=== PATIENT | male | born 1970 | race African-American/Black ===

== ENCOUNTER 2020-02-15 09:53 | Outpatient (REF) | payer MEDICARE, MEDICAID, SELFPAY ==
[2020-02-15 10:56] LABS: MANUAL DIFF FLAG NO
[2020-02-15 11:00] LABS: Basophils Percent Auto 0.5 % (0-2); Hematocrit 43.4 % (42-52); Hemoglobin 14.2 g/dl (14.0-18.0); Imm Gran Abs Auto 0.01 X10*3/uL (0.00-0.03); Imm Gran Pct Auto 0.2 % (0.0-0.4); Lymphocytes Absolute Auto 1.8 X10*3/uL (1.2-4.9); Lymphocytes Percent Auto 43.8 % (20-40); Mean Corpuscular HGB Conc 32.7 g/dl (31.0-36.0); Mean Corpuscular Hemoglobin 28.7 pg (27.0-33.0); Mean Corpuscular Volume 87.7 fL (80-98); Mean Platelet Volume 9.9 fL (9.4-12.4); Monocytes Absolute Auto 0.3 X10*3/uL (0.1-1.2); Monocytes Percent Auto 8.1 % (2-11); Neutrophils Percent Auto 46.4 % (45-73); Platelet Count 273 X10*3/uL (160-400); Red Blood Count 4.95 X10*6/uL (4.60-5.80); Red Cell Distribution Width 12.7 % (11.0-16.0); White Blood Count 4.2 X10*3/uL (4.8-10.8)
[2020-02-15 11:21] LABS: Estimated Average Glucose 137 mg/dL; Hemoglobin A1c % 6.4 %
[2020-02-15 11:57] LABS: Alanine Aminotransferase 18 U/L (0-40); Albumin Level 4.4 g/dL (3.5-5.0); Alkaline Phosphatase 59 U/L (39-117); Anion Gap 12 (12-20); Aspartate Amino Transferase 18 U/L (5-37); Bilirubin Total 0.5 mg/dL (0.0-1.0); Blood Urea Nitrogen 19 mg/dL (9-16); Calcium 9.6 mg/dL (8.4-10.2); Carbon Dioxide 30 mmol/L (22-29); Chloride 100 mmol/L (96-108); Cholesterol 243 mg/dL; Estimated Glomerular Filt Rate > 60; Glucose Random 125 mg/dL (60-115); HDL Cholesterol 50 mg/dL; LDL Cholesterol Calculated 175 mg/dl; Potassium 3.8 mmol/l (3.3-5.1); Sodium 138 mmol/L (135-145); Triglycerides 90 mg/dL
[2020-02-15 12:20] LABS: Prostate Specific Antigen Scr 3.05 ng/mL (<0.05-4.0); Thyroid Stimulating Hormone 0.67 mIU/mL (0.32-4.0)
== END 2020-02-15 09:54 | disposition home or self-care (01) ==
LOC: HO.LAB 09:53
PROVIDERS: Visit Provider Internal Medicine
DX: L30.9 Dermatitis, unspecified (principal); E66.3 Overweight; I10 Essential (primary) hypertension; E78.00 Pure hypercholesterolemia, unspecified; R73.01 Impaired fasting glucose
CPT/HCPCS: 36415; 80053; 80061; 83036; 84153; 84443; 85025

== ENCOUNTER → 2020-02-22 13:04 | Outpatient (BNVA) | payer MEDICARE, MEDICAID, SELFPAY | PROVIDERS: PCP Internal Medicine; Referring Provider Internal Medicine; Visit Provider Nurse Practitioner Family | DX: Z01.818 Encounter for other preprocedural examination (principal) | CPT/HCPCS: 99212 ==

== ENCOUNTER 2020-03-15 07:21 | Outpatient (REF) | payer MEDICARE, MEDICAID, SELFPAY | END 2020-03-15 07:22 | disposition home or self-care (01) | LOC: HO.LAB 07:21 | PROVIDERS: Visit Provider Internal Medicine | DX: Z20.828 Contact with and (suspected) exposure to other viral communicable diseases (principal) | CPT/HCPCS: C9803; U0003 ==

== ENCOUNTER 2020-04-22 06:47 | Day surgery (SDC) | payer MEDICARE, MEDICAID, SELFPAY ==
[2020-04-14 10:35] VITALS: BMI 29.2
--- NOTE | 2020-04-21 09:57 | HO.ANESPROP2 ---
Documented by User: Camryn Chong 04/21/20 09:59 HPI - Anesthesia Eval Consult details Narrative: 50yo M for [facility] Past Medical History Medical History alcohol syndrome Hypercholesterolemia Hypertension Impaired fasting blood sugar Mental and behavioral problem Overweight (BMI 25.0-29.9) Family History Family History Father No problems noted. Mother No problems noted. Brother Past heart attack Surgical History Surgical History History of oral surgery Social History Social History Household Members: Other Housing: Assisted Living Facility Alcohol intake: never Smoking Status: Never smoker Advance Directives: No Advance Directives Information Provided: No Advance Directives on File: No Meds Allergies Allergy/AdvReac Type Severity Reaction Status Date / Time No Known Allergies Allergy Verified 02/22/20 13:04 Home Medications Medication Instructions Recorded Confirmed Type cholecalciferol (vitamin D3) 25 25 mcg PO DAILY 02/14/20 04/14/20 History mcg (1,000 unit) capsule hydrochlorothiazide 25 mg tablet 25 mg PO DAILY 02/14/20 02/14/20 History hydroxyzine HCl 25 mg tablet 25 mg PO ONCE tab 02/14/20 04/14/20 History loperamide 2 mg capsule 2 mg PO Q4H PRN 02/14/20 History lisinopril [Prinivil] 10 mg PO DAILY 04/14/20 04/14/20 History Exam Exam Date and Time: April 21, 2020 0957 Height,Weight and Vital Signs: Height 5 ft 2 in Weight 72.575 kg Pertinent Lab Results Pertinent Lab Results: Laboratory Tests 02/15/20 02/15/20 10:25 10:25 WBC 4.2 L Hgb 14.2 Hct 43.4 Plt Count 273 Sodium 138 Potassium 3.8 Chloride 100 Carbon Dioxide 30 H BUN 19 H Creatinine 1.02 Assessment and Plan Assessment Anesthesia Assessment: Chart Reviewed Documented by User: Nadja Hays 04/22/20 07:20 [facility] Past Medical History Medical History alcohol syndrome Hypercholesterolemia Hypertension Impaired fasting blood sugar Mental and behavioral problem Overweight (BMI 25.0-29.9) Family History Family History Father No problems noted. Mother No problems noted. Brother Past heart attack Surgical History Surgical History History of oral surgery Social History Social History Household Members: Other Housing: Assisted Living Facility Alcohol intake: never Smoking Status: Never smoker Advance Directives: No Advance Directives Information Provided: No Advance Directives on File: No Meds Allergies Allergy/AdvReac Type Severity Reaction Status Date / Time No Known Allergies Allergy Verified 02/22/20 13:04 Home Medications Medication Instructions Recorded Confirmed Type cholecalciferol (vitamin D3) 25 25 mcg PO DAILY 02/14/20 04/14/20 History mcg (1,000 unit) capsule hydrochlorothiazide 25 mg tablet 25 mg PO DAILY 02/14/20 02/14/20 History hydroxyzine HCl 25 mg tablet 25 mg PO ONCE tab 02/14/20 04/14/20 History loperamide 2 mg capsule 2 mg PO Q4H PRN 02/14/20 History lisinopril [Prinivil] 10 mg PO DAILY 04/14/20 04/14/20 History Exam Airway Mallampati Class: II TM Dist: >3cm Neck ROM: Full Loose/Missing/Broken Teeth: Yes (24;25) Heart: RRR Lungs: Cta
[2020-04-22 07:15] VITALS: BP 134/78; PULSE 62; RESP 18; TEMP 36.4; O2SAT 97
[2020-04-22] MEDS: Lactated Ringers 1,000 ML 100 ML IVCONT (07:21)
--- NOTE | 2020-04-22 07:26 | P.HPSUR_ITS ---
Pre-Procedural Eval Section A The patient is an INPATIENT: No The History & Physical has been completed within 30 days and I have reviewed it.: No Section B Chief Complaint: screening Details of Present Illness: 50-year-old male here today for pre colonoscopy screening. [facility]. This is a tele visit speaking with patient as well as one of the staff members there. Patient denies any abdominal discomfort, pain, bloating, nausea, vomiting, constipation, diarrhea, melena. Patient reports to be feeling well. Takes all his medications as prescribed. He denies any CP, PND, SOB with or without exertion. Was seen last by his PCP Dr. Gastelum on February 13. Referral was requested to be seen by us patient is due for his 1st colonoscopy screening. He had his labs done on Feb 15 2020. Patient denies any familiar history of colon cancer or polyps. Denies any infectious diseases like hep A or B, tuberculosis. He is not on any anticoagulation. Denies any allergies, has no problems with sedation the past. Relevant Family History (Specify if Yes): No Relevant Social History: None Present Medications: see Short Stay Collaborative assessment Medical History: Significant History ( alcohol syndrome Hypercholesterolemia Hypertension Impaired fasting blood sugar Mental and behavioral problem Overweight (BMI 25.0-29.9)) History of Previous Operations: Relevant previous surgery/procedure and date(s) (History of oral surgery) Allergies: Allergies Allergy/AdvReac Type Severity Reaction Status Date / Time No Known Allergies Allergy Verified 02/22/20 13:04 Review of Systems Sugical H&P ROS: Negative: Constitution, Cardiovascular, Respiratory and Gastrointestinal and Yes, Specify: Neurological ( alcohol syndrome) Exam Surgical H&P Exam: Normal: Heart, Normal: Lungs, Normal: Extremities and Normal: Abdomen Plan Diagnosis/Plan: Unchanged I have reviewed the history and physical and performed a pertinent physical examination on my patient. No changes have occurred unless specified.
--- NOTE | 2020-04-22 07:26 | P.BOP_ITS ---
Brief Operative Note Date of Service: 04/22/20 Pre-op diagnosis: Colon cancer screening Post-op diagnosis: other (Diverticulosis, hemorrhoids) Procedure: COLONOSCOPY TILL CECUM Consent: Indications for the procedure and potential complications of bleeding, perforation, reaction to medications and missed diagnosis were discussed with the patient's guardian and informed verbal consent was obtained over the telephone. Instrument: Olympus PCF H 190 L variable stiffness pediatric colonoscope Monitoring: Vital signs and clinical assessment, intermittent blood pressure monitoring, continuous EKG monitoring, Pulse oximetry and Carbon Dioxide monitoring were done throughout the procedure. Colon withdrawl time was 16 minutes. Procedure: The patient was placed in the left lateral decubitis position and pre-procedure medications were administered. After a digital rectal examination of the ano-rectum, the video colonoscope was inserted into the rectum and advanced through the colon to the cecum. The colonoscope was slowly withdrawn in a retrograde panoramic fashion and the colon mucosa was carefully examined including a retroflexed view of the rectum. Findings and interventions are described below. Procedure Difficulty: Without difficulty Findings: Terminal Ileum: Not evaluated Cecum: Normal Ascending Colon: Moderate diverticulosis Transverse Colon: Moderate diverticulosis Descending Colon: Moderate diverticulosis Sigmoid Colon: Moderate diverticulosis Rectum: Normal Ano-rectum: Moderate internal hemorrhoids Colon preparation: Good after copious irrigation Impression and Post Procedure Diagnosis: Colonoscopy Findings: No polyps were detected Moderate diverticulosis seen in the entire colon Moderate hemorrhoids on retroflexed exam. Plan: Await pathology results Patient has an appointment on 05/05/20 in the GI Clinic with Iman Laboy FNP- BC . Repeat Colonoscopy in 10 years. Above findings were reviewed with the patient and diverticulosis handout was given in the discharge area Surgeon: Jovanni Kent MD Anesthesia: MAC (Dr Saez ) Estimated blood loss (mL): 0 Pathology: none sent Condition: stable Disposition: PACU
[2020-04-22 08:26] VITALS: BP 92/43; PULSE 99; RESP 16; TEMP 36.4; O2SAT 96
[2020-04-22 08:41] VITALS: BP 117/78; PULSE 98; RESP 18; O2SAT 98
[2020-04-22 08:56] VITALS: BP 123/82; PULSE 82; RESP 18; O2SAT 99
--- NOTE | 2020-04-23 09:44 | HO.POSTANES ---
Post Anesthesia Evaluation Post Anesthesia Evaluation Anesthesia: Monitored Mental Status: Awake Pain Control: Satisfactory Nausea/Vomiting: None Hydration: Adequate Anesthesia-Related Issues: No Anes. Related Issues
== END 2020-04-22 09:10 | disposition home or self-care (01) ==
PROVIDERS: PCP Internal Medicine; Visit Provider Internal Medicine Gastroenterology
PROC: 0DJD8ZZ Inspection of Lower Intestinal Tract, Via Natural or Artificial Opening Endoscopic (ICD-10-PCS; CPT 45378; principal; 2020-04-22 07:30)
DX: Z12.11 Encounter for screening for malignant neoplasm of colon (principal); K57.30 Diverticulosis of large intestine without perforation or abscess without bleeding; K64.8 Other hemorrhoids; I10 Essential (primary) hypertension; Q86.0 Fetal alcohol syndrome (dysmorphic); R73.01 Impaired fasting glucose; Z79.899 Other long term (current) drug therapy
CPT/HCPCS: G0121

== ENCOUNTER → 2020-05-05 13:40 | Outpatient (BNVA) | payer MEDICARE, MEDICAID, SELFPAY | PROVIDERS: PCP Internal Medicine; Visit Provider Nurse Practitioner Family | DX: Z76.89 Persons encountering health services in other specified circumstances (principal) | CPT/HCPCS: Q3014 ==

== ENCOUNTER 2022-04-23 09:29 | Outpatient (REF) | payer MEDICARE, MEDICAID, SELFPAY ==
[2022-04-23 10:37] LABS: Hematocrit 41.1 % (42.0-52.0); Hemoglobin 13.1 g/dl (14.0-18.0); Mean Corpuscular HGB Conc 31.9 g/dl (31.0-36.0); Mean Corpuscular Hemoglobin 29.4 pg (27.0-33.0); Mean Corpuscular Volume 92.2 fL (80.0-98.0); Platelet Count 349 X10*3/uL (160-400); Red Blood Count 4.46 X10*6/uL (4.60-5.80); Red Cell Distribution Width 13.9 % (11.0-16.0); White Blood Count 5.3 X10*3/uL (4.8-10.8)
[2022-04-23 11:07] LABS: Alanine Aminotransferase 15 U/L (0-40); Albumin Level 4.3 g/dL (3.5-5.0); Alkaline Phosphatase 54 U/L (39-117); Anion Gap 11 (12-20); Aspartate Amino Transferase 16 U/L (5-37); Bilirubin Total 0.6 mg/dL (0.0-1.0); Blood Urea Nitrogen 14 mg/dL (9-16); Calcium 10.2 mg/dL (8.4-10.2); Carbon Dioxide 28 mmol/L (22-29); Chloride 105 mmol/L (96-108); Cholesterol 270 mg/dL; Estimated Glomerular Filt Rate > 60; Glucose Fasting 94 mg/dL (60-99); HDL Cholesterol 60 mg/dL; LDL Cholesterol Calculated 195 mg/dl; Sodium 140 mmol/L (135-145); Total Protein 6.8 g/dL (6.5-8.0); Triglycerides 76 mg/dL
[2022-04-23 11:58] LABS: Creatinine Urine 116.17 mg/dL
== END 2022-04-23 09:30 | disposition home or self-care (01) ==
LOC: HO.LAB 09:29
PROVIDERS: PCP Internal Medicine; Visit Provider Nurse Practitioner Family
DX: E10.9 Type 1 diabetes mellitus without complications (principal)
CPT/HCPCS: 36415; 80053; 80061; 82043; 84443; 85027

== ENCOUNTER 2022-07-16 09:09 | Outpatient (REF) | payer MEDICARE, MEDICAID, SELFPAY ==
[2022-07-16 09:29] LABS: MANUAL DIFF FLAG NO
[2022-07-16 11:02] LABS: Basophils Percent Auto 0.5 % (0-2); Eosinophils Percent Auto 0.5 % (0-4); Hematocrit 44.4 % (42.0-52.0); Hemoglobin 14.5 g/dl (14.0-18.0); Imm Gran Abs Auto 0.01 X10*3/uL (0.00-0.03); Imm Gran Pct Auto 0.2 % (0.0-0.4); Immature Retic Fraction 7.6 % (2.3-13.4); Lymphocytes Absolute Auto 1.5 X10*3/uL (1.2-4.9); Lymphocytes Percent Auto 37.2 % (20-40); Mean Corpuscular HGB Conc 32.7 g/dl (31.0-36.0); Mean Corpuscular Hemoglobin 28.2 pg (27.0-33.0); Mean Corpuscular Volume 86.4 fL (80.0-98.0); Mean Platelet Volume 9.6 fL (9.4-12.4); Monocytes Absolute Auto 0.3 X10*3/uL (0.1-1.2); Monocytes Percent Auto 6.8 % (2-11); Neutrophils Absolute Auto 2.3 x10*3/uL (2.0-8.3); Neutrophils Percent Auto 54.8 % (45-73); Platelet Count 269 X10*3/uL (160-400); Red Blood Count 5.14 X10*6/uL (4.60-5.80); Red Cell Distribution Width 12.6 % (11.0-16.0); Retic HGB Equivalent 33.4 pg (30.0-35.0); Reticulocyte Percent 1.1 % (0.5-1.8); Reticulocytes Absolute 0.057 X10*6/uL (0.026-0.095); White Blood Count 4.1 X10*3/uL (4.8-10.8)
[2022-07-16 11:18] LABS: Creatinine Urine 83.18 mg/dL
[2022-07-16 11:28] LABS: Alanine Aminotransferase 17 U/L (0-40); Albumin Level 4.3 g/dL (3.5-5.0); Alkaline Phosphatase 56 U/L (39-117); Anion Gap 12 (12-20); Aspartate Amino Transferase 17 U/L (5-37); Bilirubin Total 0.5 mg/dL (0.0-1.0); Blood Urea Nitrogen 23 mg/dL (9-16); Calcium 9.7 mg/dL (8.4-10.2); Carbon Dioxide 29 mmol/L (22-29); Chloride 103 mmol/L (96-108); Cholesterol 217 mg/dL; Estimated Glomerular Filt Rate > 60; Glucose Random 95 mg/dL (60-115); HDL Cholesterol 50 mg/dL; Iron 76 mcg/dL (45-160); LDL Cholesterol Calculated 155 mg/dl; Percent Iron Saturation 27 % (15-50); Potassium 3.8 mmol/L (3.3-5.1); Sodium 140 mmol/L (135-145); Total Iron Binding Capacity 283 mcg/dL (228-428); Total Protein 6.5 g/dL (6.5-8.0); Triglycerides 62 mg/dL; Unsaturated Iron Binding 207 ug/dL
[2022-07-16 11:37] LABS: Estimated Average Glucose 134 mg/dL; Hemoglobin A1c % 6.3 %
[2022-07-16 11:56] LABS: Ferritin 170 ng/mL (20-250); Folate 11.9 ng/mL (> or = 4.0); Free T4 (Free Thyroxine) 1.17 ng/dL (0.71-1.85); Prostate Specific Antigen 8.04 ng/mL (<0.05-4.0); Thyroid Stimulating Hormone 1.26 uIU/mL (0.32-4.0); Vitamin B12 249 pg/mL (200-900)
== END 2022-07-16 09:10 | disposition home or self-care (01) ==
LOC: HO.LAB 09:09
PROVIDERS: PCP Internal Medicine; Visit Provider Internal Medicine
DX: Z12.5 Encounter for screening for malignant neoplasm of prostate (principal); E11.65 Type 2 diabetes mellitus with hyperglycemia; I10 Essential (primary) hypertension; E78.00 Pure hypercholesterolemia, unspecified
CPT/HCPCS: 36415; 80053; 80061; 82043; 82607; 82728; 82746; 83036; 83540; 84153; 84439; 84443; 85025; 85045

== ENCOUNTER 2022-07-26 16:14 | Outpatient (REF) | payer MEDICARE, MEDICAID, SELFPAY ==
[2022-07-26 18:15] LABS: Creatinine Urine 180.86 mg/dL
[2022-07-26 20:29] LABS: PSA,Total (Free>4and<10) 9.87 ng/mL (0.00-4.00)
[2022-07-29 10:18] LABS: Percent Free Prostate Spec Ag 12 % (calc) (>25); Prostate Specific Ag Total 8.6 ng/mL (< OR = 4.0)
== END 2022-07-26 16:15 | disposition home or self-care (01) ==
LOC: HO.LAB 16:14
PROVIDERS: PCP Internal Medicine; Visit Provider Internal Medicine
DX: Z12.5 Encounter for screening for malignant neoplasm of prostate (principal); R97.20 Elevated prostate specific antigen [PSA]; E11.65 Type 2 diabetes mellitus with hyperglycemia
CPT/HCPCS: 36415; 84153; 84154

== ENCOUNTER → 2022-08-27 11:04 | Outpatient (BNVA) | payer MEDICARE, MEDICAID, SELFPAY | PROVIDERS: PCP Internal Medicine; Visit Provider Nurse Practitioner Family | DX: R97.20 Elevated prostate specific antigen [PSA] (principal); R68.89 Other general symptoms and signs | CPT/HCPCS: 99202 ==

== ENCOUNTER 2022-09-28 11:23 | Outpatient (REF) | payer MEDICARE, MEDICAID, SELFPAY ==
[2022-09-28 11:31] VITALS: BMI 26.0
[2022-09-28 11:45] VITALS: BP 145/86; PULSE 74; RESP 16; TEMP 36.4; O2SAT 99
--- NOTE | 2022-09-28 12:49 | W.PM.OPN ---
Operative Note Operative Note Date of Service: 09/28/22 Narrative: Preoperative diagnosis: Elevated PSA Postoperative diagnosis: Elevated PSA Procedure: 1. transrectal ultrasound measurement of prostate 2. transrectal ultrasound-guided pudendal nerve block 3. transrectal ultrasound-guided prostate biopsy 12 core Surgeon: Dr. Alexis Neal Anesthetic: Local Indications for procedure: Elevated PSA 08/15 9.9 Procedure: After informed consent was verified, the patient was brought into the procedure area and lay left-hand side down on the table. Patient identity confirmed. Perioperative antibiotics confirmed. Safety pause time out performed. TIBURCIO performed to dilate rectal sphincter Iodine 10cc with Gel was placed per rectum Ultrasound probe was placed per rectum The prostate was measured in 3 dimensions Total volume equals 60 gm No cystic structures were noted No calcifications were noted at the surgical margin The prostate was otherwise heterogenous in nature An ultrasound-guided pudendal nerve block was performed using 10 cc of 1% lidocaine. 8 cc was placed at the base and 2 cc of the apex. A 12 core biopsy was performed with 6 cores each side. Two cores were taken at the apex, mid and base. Cores were spaced between lateral and medial. He tolerated the procedure well. Was able to ambulate to bathroom after 5 minutes. Printed instructions regarding antibiotic use and common side effects such as low-grade temperature, potential infection and bleeding were given Pathology: 12 core prostate biopsy.
[2022-09-28 12:57] VITALS: BP 133/78; PULSE 77; RESP 16; TEMP 36.3; O2SAT 100
== END 2022-09-28 11:24 | disposition home or self-care (01) ==
LOC: HO.MS 11:23
PROVIDERS: PCP Internal Medicine; Visit Provider Urology
PROC: (CPT 55700; principal; 2022-09-28 12:00)
DX: R97.20 Elevated prostate specific antigen [PSA] (principal)
CPT/HCPCS: 55700; 76942; 88305; 88344

== ENCOUNTER → 2022-10-19 13:50 | Outpatient (BNVA) | payer MEDICARE, MEDICAID, SELFPAY | PROVIDERS: PCP Internal Medicine; Visit Provider Urology | DX: N41.9 Inflammatory disease of prostate, unspecified (principal); N40.1 Benign prostatic hyperplasia with lower urinary tract symptoms; N13.8 Other obstructive and reflux uropathy; R39.15 Urgency of urination; Z98.890 Other specified postprocedural states | CPT/HCPCS: 99212 ==

== ENCOUNTER 2022-11-09 09:48 | Outpatient (AMB) | payer MEDICARE, MEDICAID, SELFPAY ==
--- NOTE | 2022-11-09 09:58 | A.OFFPC_ITS ---
Vital Signs 11/09/22 09:59 Height 5 ft 2 in Weight 68.039 kg BMI 27.4 BP 130/80 Blood Pressure Location Lt brachial Position Sitting Pulse 88 Pulse Source Pulse Oximeter Pulse Oximetry (%) 97 Oxygen Delivery Method Room Air Intake Visit Reasons: 3 month f/u Intake Note: Patient is here to follow up on DM. 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 PATIENT WAS LAST SEEN IN JULY 2022 patient was recently seen by urology had biopsy of the prostate(September 2022 benign) patient was started on finasteride 5 mg once a day and that the tadalafil 5 mg once a day patient is here for follow-up. June last blood work. Patient is here for follow-up did notice hypercholesterolemia [facility] Medical History (Updated 11/09/22 @ 10:08 by Ben Gastelum MD) Colon cancer screening alcohol syndrome Hypercholesterolemia Hypertension Impaired fasting blood sugar Medicare annual wellness visit, initial Mental and behavioral problem Overweight (BMI 25.0-29.9) Screening for prostate cancer Surgical History (Updated 11/09/22 @ 10:05 by JACOBO Vee) History of biopsy History of oral surgery Hx of colonoscopy Family History Father No problems noted. Mother No problems noted. Brother Past heart attack Social History Household Members: Other Housing: Assisted Living Facility Housing Other:: Nursing Home Alcohol intake: never Patient Tobacco Use Status: Never used Tobacco e-Cigarette/Vaping Use: Never Used Second Hand Smoke Exposure: No service: No Current occupational status: disabled Cognitive needs: No Hearing needs: No Vision needs: Yes (glasses) Questionnaire Thrive Questionnaire Date Thrive assessed: 08/03/22 ANAI-7 AMB Questionnaire ANAI-7 Date ANAI - 7 assessed: 07/05/22 Source: Developed by Drs. Michael Clayton, Sanjana Mcclure, George Jaquez and colleagues, with an educational jose f from [employer]. Physical exam (Primary Care) Vital Signs: Last Vital Signs Pulse 88 11/09/22 09:59 BP 130/80 11/09/22 09:59 Pulse Ox 97 11/09/22 09:59 Oxygen Delivery Method Room Air 11/09/22 09:59 BMI result Body Mass Index 27.4 Tobacco/Smoking Status: Tobacco use Status Tobacco use date assessed 11/09/22 11/09/22 10:07 Patient Tobacco Use Status Never used Tobacco 11/09/22 10:07 e-Cigarette/Vaping Use Never Used 11/09/22 10:07 Thrive Assessment: Date of Thrive Assessment Date Thrive assessed 08/03/22 11/09/22 10:07 Const General: alert; No acute distress Eyes Conjunctivae: conjunctivae normal Resp Auscultation: clear to auscultation bilaterally Cardio Rate: regular rate Rhythm: regular rhythm GI Inspection: Yes normal to inspection Extrem General: Yes normal to inspection and No edema Results AMB Hemoglobin A1c AMB Hemoglobin A1c 5.8 % Last Edit by JACOBO Vee on 11/09/22 10:09 Immunizations tetanus-diphtheria toxoids-Td Performing Provider: Ben Gastelum MD Administered by: Purvi Sims CMA on 11/09/22 10:26 Dose Route Admin Location Lot Number Expiration Date [place] Career Advisor 0.5 mL IM Left Deltoid [id number] 08/29/23 [address]-3 [employer] VIS Given Date VIS Provided VIS Publication Date 11/09/22 Single Vaccine 20 Eligibility Eligibility Date Funding Source Not [facility] Eligible 11/09/22 State funds Results Reviewed Results Reviewed: Laboratory Last Values Hgb A1c (Clinic) 5.8 % (4.0-6.0) 11/09/22 09:58 Assessment and Plan Assessment & Plan (1) Diabetes type 1, controlled: Comment: [facility] Arias Code(s): E10.9 - Type 1 diabetes mellitus without complications Plan: Decrease the amount of carbohydrate intake, pasta, bread, rice and potatoes are all sugar and that is aside from all the sweet stuff, remember that fruits are good but they are Sweet also. Hemoglobin A1c goal of less than 6.5. Patient is on Tresiba metformin (2) PSA elevation: Code(s): R97.20 - Elevated prostate specific antigen [PSA] Plan: Patient is being followed up by urology has had biopsy revealing benign prostatic tissue September 2022 (3) Overweight (BMI 25.0-29.9): Comment: Diet and exercise Code(s): E66.3 - Overweight Plan: Diet and exercise (4) Hypertension: Comment: Continue with blood pressure medication. Decrease salt intake and exercise Code(s): I10 - Essential (primary) hypertension Qualifiers: Hypertension type: essential hypertension Qualified Code(s): I10 - Essential (primary) hypertension Plan: Continue with blood pressure medication. Decrease salt intake and exercise patient is on lisinopril 10 mg once a day hydrochlorothiazide 25 mg once a day (5) Hypercholesterolemia: Code(s): E78.00 - Pure hypercholesterolemia, unspecified Plan: Avoid fried foods, chicken skin, eggs, butter margarine, pastries and meat. Be it pork or beef they have a lot of cholesterol LDL goal of less than 100. June 2022 last blood work patient is on pravastatin 40 mg once a day (6) BPH loc w urin obs/LUTS: Code(s): N40.1 - Benign prostatic hyperplasia with lower urinary tract symptoms Plan: Continue with medication is being followed up by Urology (7) Mental and behavioral problem: Code(s): F48.9 - Nonpsychotic mental disorder, unspecified; F69 - Unspecified disorder of adult personality and behavior Plan: Continue with psychiatric treatment. Orders: Orders Td State Immunization Today Z23 - Encounter for immunization AMB Hemoglobin A1c Today E10.9 - Type 1 diabetes mellitus without complications Medications: Discontinued levofloxacin take 1 tablet day before procedure, 1 tablet day of procedure and 1 tablet day after procedure Discontinued Reason: Patient Completed Course 500 mg PO daily 3 days 3 tabs 0RF Coding Level of Care Code Est Pt Level 4 (05911) Diagnoses Diabetes type 1, controlled E10.9 PSA elevation R97.20 Overweight (BMI 25.0-29.9) E66.3 Hypertension I10 Hypertension type: essential hypertension Hypercholesterolemia E78.00 BPH loc w urin obs/LUTS N40.1 Mental and behavioral problem F48.9; F69
[2022-11-09 09:59] VITALS: BP 130/80; PULSE 88; O2SAT 97; BMI 27.4
== END 2022-11-09 10:35 | disposition home or self-care (01) ==
PROVIDERS: Visit Provider Internal Medicine
DX: E10.9 Type 1 diabetes mellitus without complications (principal); I10 Essential (primary) hypertension; R97.20 Elevated prostate specific antigen [PSA]; Z23 Encounter for immunization; E66.3 Overweight; E78.00 Pure hypercholesterolemia, unspecified; N40.1 Benign prostatic hyperplasia with lower urinary tract symptoms; F48.9 Nonpsychotic mental disorder, unspecified; F69 Unspecified disorder of adult personality and behavior
CPT/HCPCS: 83036; 90471; 90714; 99214

== ENCOUNTER 2022-11-20 09:36 | Outpatient (REF) | payer MEDICARE, MEDICAID, SELFPAY ==
[2022-11-20 10:28] LABS: Estimated Average Glucose 120 mg/dL; Hemoglobin A1c % 5.8 %
[2022-11-20 10:46] LABS: Alanine Aminotransferase 22 U/L (0-40); Albumin Level 4.1 g/dL (3.5-5.0); Alkaline Phosphatase 59 U/L (39-117); Anion Gap 16 (12-20); Aspartate Amino Transferase 15 U/L (5-37); Bilirubin Total 0.4 mg/dL (0.0-1.0); Blood Urea Nitrogen 18 mg/dL (9-16); Calcium 9.6 mg/dL (8.4-10.2); Carbon Dioxide 24 mmol/L (22-29); Chloride 104 mmol/L (96-108); Cholesterol 186 mg/dL; Estimated Glomerular Filt Rate > 60; Glucose Random 114 mg/dL (60-115); HDL Cholesterol 52 mg/dL; LDL Cholesterol Calculated 123 mg/dl; Potassium 3.4 mmol/L (3.3-5.1); Sodium 141 mmol/L (135-145); Total Protein 6.7 g/dL (6.5-8.0); Triglycerides 58 mg/dL
== END 2022-11-20 09:37 | disposition home or self-care (01) ==
LOC: HO.LAB 09:36
PROVIDERS: PCP Internal Medicine; Visit Provider Internal Medicine
DX: E78.00 Pure hypercholesterolemia, unspecified (principal); E10.9 Type 1 diabetes mellitus without complications
CPT/HCPCS: 36415; 80053; 80061; 83036

== ENCOUNTER 2023-02-28 09:44 | Outpatient (AMB) | payer MEDICARE, MEDICAID, SELFPAY ==
[2023-02-28 09:47] VITALS: BP 130/68; PULSE 92; O2SAT 98; BMI 28.9
--- NOTE | 2023-02-28 09:47 | A.OFFPC_ITS ---
Vital Signs 02/28/23 09:47 Height 5 ft 2 in Weight 158 lb BMI 28.9 BP 130/68 Blood Pressure Location Lt brachial Position Sitting Pulse 92 Pulse Source Pulse Oximeter Pulse Oximetry (%) 98 Oxygen Delivery Method Room Air Intake Visit Reasons: DM Allergies No Known Allergies Allergy (Verified 02/28/23 09:47) Medication List - Last Reconciled 02/28/23 by Ben Gastelum MD ammonium lactate 12% 1 appl topical BID blood sugar diagnostic (FreeStyle Lite Strips) As directed blood-glucose meter (FreeStyle Lite Meter kit) As directed cholecalciferol (vitamin D3) 50 mcg PO QAM clotrimazole 1% 1 appl topical BID 4 weeks finasteride 5 mg PO DAILY 90 days hydrochlorothiazide 25 mg PO DAILY insulin degludec (Tresiba FlexTouch U-100 insulin) 16 units (0.16 mL) subcut DAILY insulin syringe-needle U-100 As directed lancets (FreeStyle Lancets) As directed lisinopril 10 mg PO DAILY metformin 500 mg PO DAILY miconazole nitrate 2% (Zeasorb AF) 1 appl topical BID potassium chloride ER (Klor-Con M) 20 mEq PO DAILY pravastatin 40 mg PO DAILY 30 days tadalafil 5 mg PO DAILY 90 days terbinafine HCl 250 mg PO DAILY 12 weeks Tobacco use date assessed: 11/09/22 Dental Screening Dental Screen Date: 02/28/23 Did you have a dental visit in the last 12 months?: Yes Did you have a dental problem in the last 6 months where you did not have access to dental care?: No Was dental information given to patient?: Patient has dentist HPI DM HPI Details 53-year-old overweight male diabetes art litus type 1 with hypertension hypercholesterol BPH and mental and behavioral problem coming in for follow-up. Last seen in October 2022 [facility] Medical History (Updated 02/28/23 @ 10:10 by Ben Gastelum MD) Screening for prostate cancer Medicare annual wellness visit, initial Colon cancer screening Overweight (BMI 25.0-29.9) alcohol syndrome Hypertension Hypercholesterolemia Mental and behavioral problem Impaired fasting blood sugar Surgical History (Updated 11/09/22 @ 10:05 by JACOBO Vee) History of biopsy Hx of colonoscopy History of oral surgery Family History Father No problems noted. Mother No problems noted. Brother Past heart attack Social History Household Members: Other Housing: Assisted Living Facility Housing Other:: Intermediate Alcohol intake: never Patient Tobacco Use Status: Never used Tobacco e-Cigarette/Vaping Use: Never Used Second Hand Smoke Exposure: No service: No Current occupational status: disabled Cognitive needs: No Hearing needs: No Vision needs: Yes (glasses) Questionnaire PHQ-9 Over the last 2 weeks, how often have you been bothered by any of the following problems? 1. Little interest or pleasure in doing things: not at all 2. Feeling down, depressed, or hopeless: not at all 3. Trouble falling or staying asleep, or sleeping too much: not at all 4. Feeling tired or having little energy: not at all 5. Poor appetite or overeating: not at all 6. Feeling bad about yourself - or that you are a failure or have let yourself or your family down: not at all 7. Trouble concentrating on things, such as reading the newspaper or watching television: not at all 8. Moving or speaking so slowly that other people could have noticed. Or the opposite - being so fidgety or restless that you have been moving around a lot more than usual: not at all 9. Thoughts that you would be better off or of hurting yourself in some way: not at all Total score: 0 Depression Screening Interpretation: Negative Depression Screening Done: Yes Source: Developed by Drs. Michael Clayton, Sanjana Mcclure, George Jaquez and colleagues, with an educational jose f from [employer]. Thrive Questionnaire Date Thrive assessed: 08/03/22 AUDIT C Alcohol Use Questionnaire (AUDIT-C) 1. How often do you have a drink containing alcohol?: Never 3. How often do you have six or more drinks on one occasion?: Never Total Score: 0 ANAI-7 AMB Questionnaire ANAI-7 Date ANAI - 7 assessed: 07/05/22 Source: Developed by Drs. Michael Clayton, George Bower and colleagues, with an educational jose f from [employer]. Physical exam (Primary Care) Vital Signs: Last Vital Signs Pulse 92 02/28/23 09:47 BP 130/68 02/28/23 09:47 Pulse Ox 98 02/28/23 09:47 Oxygen Delivery Method Room Air 02/28/23 09:47 BMI result Body Mass Index 28.9 Tobacco/Smoking Status: Tobacco use Status Tobacco use date assessed 11/09/22 02/28/23 09:48 Patient Tobacco Use Status Never used Tobacco 02/28/23 09:48 e-Cigarette/Vaping Use Never Used 02/28/23 09:48 PHQ-9: PHQ-9 Score PHQ-9: Total score 0 02/28/23 09:48 Depression Screening Interpretation: Negative Thrive Assessment: Date of Thrive Assessment Date Thrive assessed 08/03/22 02/28/23 09:48 Const General: alert; No acute distress Eyes Conjunctivae: conjunctivae normal Resp Auscultation: clear to auscultation bilaterally Cardio Rate: regular rate Rhythm: regular rhythm GI Inspection: Yes normal to inspection Extrem General: Yes normal to inspection and No edema Results AMB Hemoglobin A1c AMB Hemoglobin A1c 5.8 % Last Edit by Purvi Sims CMA on 02/28/23 10 :00 Assessment and Plan Assessment & Plan (1) Diabetes type 1, controlled: Comment: [facility] Dr. Arias Code(s): E10.9 - Type 1 diabetes mellitus without complications Plan: Decrease the amount of carbohydrate intake, pasta, bread, rice and potatoes are all sugar and that is aside from all the sweet stuff, remember that fruits are good but they are Sweet also. Hemoglobin A1c goal of less than 6.5. Patient on Tresiba 60 units once a day metformin 500 mg once a day (2) Hypercholesterolemia: Code(s): E78.00 - Pure hypercholesterolemia, unspecified Plan: Avoid fried foods, chicken skin, eggs, butter margarine, pastries and meat. Be it pork or beef they have a lot of cholesterol presently on pravastatin 40 mg once a day October LDL was high advised to get blood work (3) Hypertension: Comment: Continue with blood pressure medication. Decrease salt intake and exercise Code(s): I10 - Essential (primary) hypertension Qualifiers: Hypertension type: essential hypertension Qualified Code(s): I10 - Essential (primary) hypertension Plan: Continue with blood pressure medication. Decrease salt intake and exercise patient is on lisinopril 10 mg once a day (4) BPH loc w urin obs/LUTS: Code(s): N40.1 - Benign prostatic hyperplasia with lower urinary tract symptoms Plan: Continue with finasteride continue to follow-up with Urology (5) Hypokalemia: Code(s): E87.6 - Hypokalemia Plan: Repeat testing advised patient on potassium (6) Varicose veins of ankle: Code(s): I83.90 - Asymptomatic varicose veins of unspecified lower extremity Plan: When sitting down elevate the legs, exercise, and support stockings Orders: Orders AMB Hemoglobin A1c Today Z13.9 - Encounter for screening, unspecified PSA,Total (Free>4and<10) Today R97.20 - Elevated prostate specific antigen [PSA] Comprehensive Met. Panel Today E87.6 - Hypokalemia Lipid Panel Today E78.00 - Pure hypercholesterolemia, unspecified Medications: New compress.stocking,knee,reg,med As directed 20-30 mm HG 2 ea 0RF I83.90 - Asymptomatic varicose veins of unspecified lower extremity Coding Level of Care Code Est Pt Level 4 (74295) Diagnoses Diabetes type 1, controlled E10.9 Hypercholesterolemia E78.00 Essential hypertension I10 Hypertension type: essential hypertension BPH loc w urin obs/LUTS N40.1 Hypokalemia E87.6 Varicose veins of ankle I83.90 Additional Codes PHQ-9 - 15272 - PHQ-9 Billing: ([id number])
== END 2023-02-28 10:20 | disposition home or self-care (01) ==
PROVIDERS: PCP Internal Medicine; Visit Provider Internal Medicine
DX: E10.9 Type 1 diabetes mellitus without complications (principal); E78.00 Pure hypercholesterolemia, unspecified; I10 Essential (primary) hypertension; N40.1 Benign prostatic hyperplasia with lower urinary tract symptoms; E87.6 Hypokalemia; I83.90 Asymptomatic varicose veins of unspecified lower extremity; Z23 Encounter for immunization
CPT/HCPCS: 83036; 90471; 90686; 99214

== ENCOUNTER 2023-04-14 13:59 | Outpatient (REF) | payer MEDICARE, MEDICAID, SELFPAY ==
[2023-04-14 15:54] LABS: Prostate Specific Antigen 4.33 ng/mL (<0.05-4.0)
== END 2023-04-14 14:00 | disposition home or self-care (01) ==
LOC: HO.LAB 13:59
PROVIDERS: PCP Internal Medicine; Visit Provider Urology
DX: Z12.5 Encounter for screening for malignant neoplasm of prostate (principal); R97.20 Elevated prostate specific antigen [PSA]
CPT/HCPCS: 36415; 84153

== ENCOUNTER 2023-04-20 10:42 | Outpatient (REF) | payer MEDICARE, MEDICAID, SELFPAY ==
[2023-04-20 11:49] LABS: Alanine Aminotransferase 23 U/L (0-40); Albumin Level 4.4 g/dL (3.5-5.0); Alkaline Phosphatase 61 U/L (39-117); Anion Gap 11 (12-20); Aspartate Amino Transferase 15 U/L (5-37); Bilirubin Direct 0.2 mg/dL (0.0-0.5); Bilirubin Total 0.6 mg/dL (0.0-1.0); Blood Urea Nitrogen 12 mg/dL (9-16); Calcium 10.4 mg/dL (8.4-10.2); Carbon Dioxide 32 mmol/L (22-29); Chloride 102 mmol/L (96-108); Cholesterol 198 mg/dL (<200); Estimated Glomerular Filt Rate > 60; Glucose Random 122 mg/dL (60-115); HDL Cholesterol 56 mg/dL (>40); LDL Cholesterol Calculated 118 mg/dL (<100); Potassium 3.8 mmol/L (3.3-5.1); Sodium 141 mmol/L (135-145); Total Protein 7.1 g/dL (6.5-8.0); Triglycerides 121 mg/dL (<150)
[2023-04-20 12:03] LABS: PSA,Total (Free>4and<10) 4.81 ng/mL (0.00-4.00)
[2023-04-21 13:58] LABS: Free Prostate Spec Ag 0.5 ng/mL; Percent Free Prostate Spec Ag 13 % (calc) (>25)
== END 2023-04-20 10:43 | disposition home or self-care (01) ==
LOC: HO.LAB 10:42
PROVIDERS: PCP Internal Medicine; Visit Provider Internal Medicine
DX: E87.6 Hypokalemia (principal); E78.00 Pure hypercholesterolemia, unspecified; R97.20 Elevated prostate specific antigen [PSA]; R79.89 Other specified abnormal findings of blood chemistry; B35.1 Tinea unguium; Z12.5 Encounter for screening for malignant neoplasm of prostate
CPT/HCPCS: 36415; 80053; 80061; 82248; 84153; 84154

== ENCOUNTER 2023-04-27 10:11 | Outpatient (AMB) | payer MEDICARE, MEDICAID, SELFPAY ==
--- NOTE | 2023-04-27 10:26 | MHC.OFFVIS ---
Intake Intake Visit Reasons: Follow up Intake Note: Patient is present for Follow Up elevated psa Urology Medications: finasteride, cialis Antibiotic Allergy: None Blood Thinner: None PVR: 0ml's Commodity Specialist Required: No Accompanied by: Other Relationship Allergies No Known Allergies Allergy (Verified 04/27/23 11:00) Medication List - Last Reconciled 04/27/23 by NAVNEET Sawyer ammonium lactate 12% 1 appl topical BID blood sugar diagnostic (FreeStyle Lite Strips) As directed blood-glucose meter (FreeStyle Lite Meter kit) As directed cholecalciferol (vitamin D3) 50 mcg PO QAM clotrimazole 1% 1 appl topical BID 4 weeks compress.stocking,knee,reg,med As directed 20-30 mm HG finasteride 5 mg PO DAILY 90 days hydrochlorothiazide 25 mg PO DAILY insulin degludec (Tresiba FlexTouch U-100 insulin) 16 units (0.16 mL) subcut DAILY insulin syringe-needle U-100 As directed lancets (FreeStyle Lancets) As directed lisinopril 10 mg PO DAILY metformin 500 mg PO DAILY miconazole nitrate 2% (Zeasorb AF) 1 appl topical BID potassium chloride ER (Klor-Con M) 20 mEq PO DAILY pravastatin 40 mg PO DAILY 30 days tadalafil 5 mg PO DAILY 7 days terbinafine HCl 250 mg PO DAILY 12 weeks HPI HPI Comments History of Present Illness Details Tomasz is a pleasant 53 year old male patient of Dr. Kothari who was accompanied by one of the staff members of the shelter he resides in. He has a past medical history of alcohol syndrome, hypertension, hypercholesteremia, and mental and behaviorl problem. He presents to the office today for follow-up of his elevated PSA. Of note, patient underwent prostate biopsy with Dr. Neal September 2022 [facility]. In discussion with the patient today reports to be doing and feeling well. He reports to be happy with current voiding parameters on 5 mg of Cialis daily. Recent PSA results reviewed with the patient today. As noted and trended below. In office urinalysis results reviewed with the patient today. PVR 0 mL. When asked he denies urinary urgency, urinary frequency, incontinence, nocturia, hematuria, dysuria, foul smelling urine, changes to urinary stream, flank pain, fever, and or chills. Elevated PSA 07/15- 8.0 08/15- 9.9 08/15- 8.6 percent free 12%. 04/16 4.8 percent free 13% Prostate biopsy - 10/15 [facility] Medical History Screening for prostate cancer Medicare annual wellness visit, initial Colon cancer screening Overweight (BMI 25.0-29.9) alcohol syndrome Hypertension Hypercholesterolemia Mental and behavioral problem Impaired fasting blood sugar Surgical History History of biopsy Hx of colonoscopy History of oral surgery Family History Father No problems noted. Mother No problems noted. Brother Past heart attack Social History Household Members: Other Housing: Assisted Living Facility Housing Other:: Prison Alcohol intake: never Patient Tobacco Use Status: Never used Tobacco e-Cigarette/Vaping Use: Never Used Second Hand Smoke Exposure: No service: No Current occupational status: disabled Cognitive needs: No Hearing needs: No Vision needs: Yes (glasses) Review of Systems Const All systems reviewed & are unremarkable except as noted in HPI and below Eyes Reports no additional complaints ENT Reports no additional complaints Card Reports no additional complaints Resp Reports no additional complaints GI Reports no additional complaints Reports as per HPI Musc Reports no additional complaints Neuro Reports no additional complaints Psych Reports as per HPI Endo Reports as per HPI Levi/Lymph Reports no additional complaints Aller/Immun Reports no additional complaints Physical Exam Const General: cooperative, healthy appearing, comfortable, no acute distress, well developed, alert and awake Nutritional Appearance: average body habitus Orientation/consciousness: patient oriented x3 Limitations: no limitations HEENT Head: Yes normal to inspection, Yes normocephalic and Yes atraumatic Ears: hearing grossly normal bilaterally Eyes General: appearance normal, both eyes and all related structures Neck Neck: Yes normal visual inspection and Yes trachea midline Chest Chest palpation & inspection: normal inspection of the chest Resp Effort & Inspection: normal respiratory effort and able to speak in complete sentences Cardio Rate: regular rate GI Inspection: Yes normal to inspection General: Yes no CVA tenderness Back/Spine/Pelvis Back: no CVA tenderness Skin General skin exam: no rashes or lesions noted Neuro General: patient oriented x3 Extrem General: Yes normal to inspection Psych Appearance: grossly normal and well kempt Mental Status: mental status grossly normal Speech and movement: Normal speech and movement present and Clear speech present Affect: normal affect Attitude: cooperative Thought process: Normal thought process present Thought content: Normal thought content present Insight: Good insight present (Psych) Judgement: Good judgement present (Psych) Office Procedures Post Void Residual Post Residual Void Post Void Residual (PVR): 0 [id number] Void Residual by ultrasound Results AMB Urinalysis, Automated UA Leukoctes 0 Boogie/uL Last Edit by Gaelectric on 04/27/23 10:44 UA Nitrite Negative Last Edit by Gaelectric on 04/27/23 10:44 UA Urobilinogen 0.2 mg/dL Last Edit by Gaelectric on 04/27/23 10:44 UA Protein 0 mg/dL Last Edit by Gaelectric on 04/27/23 10:44 UA pH 6.0 Last Edit by Gaelectric on 04/27/23 10:44 UA Blood 0 Bharat/uL Last Edit by Gaelectric on 04/27/23 10:44 UA Specific [place] 1.030 Last Edit by Gaelectric on 04/27/23 10:44 UA Ketone Negative Last Edit by Gaelectric on 04/27/23 10:44 UA Bilirubin 0 mg/dL Last Edit by Gaelectric on 04/27/23 10:44 UA Glucose 0 mg/dL Last Edit by Gaelectric on 04/27/23 10:44 Results Reviewed Results Reviewed: Laboratory Last Values Urine pH (Auto) 6.0 04/27/23 10:29 Specific [place] (Auto) 1.030 04/27/23 10:29 Urine Protein (Auto) 0 mg/dL 04/27/23 10:29 Glucose (UA)(Auto) 0 mg/dL 04/27/23 10:29 Urine Ketones (Auto) Negative 04/27/23 10:29 Urine Blood (Auto) 0 Bharat/uL 04/27/23 10:29 Urine Nitrite (Auto) Negative 04/27/23 10:29 Urine Bilirubin (Auto) 0 mg/dL 04/27/23 10:29 Urine Urobilinogen (Auto) 0.2 mg/dL 04/27/23 10:29 Leukocyte Esterase (Auto) 0 Boogie/uL 04/27/23 10:29 Assessment & Plan Assessment & Plan (1) PSA elevation: Code(s): R97.20 - Elevated prostate specific antigen [PSA] (2) Urinary urgency: Code(s): R39.15 - Urgency of urination Plan In office urinalysis results reviewed with the patient today; as noted above. PVR 0 mL. Recent PSA results reviewed with the patient today; as noted above. Patient denies any bothersome urinary issues at this time. Continue 5 mg of Cialis and 5 mg of finasteride daily as discussed and prescribed He is happy with his current voiding parameters Will obtain PSA in 4 months. Follow-up in 4 months with lab to be completed prior; or sooner with any issues, concerns, and or questions. Orders: Orders PSA,Total (Free>4and<10) 4 Months R97.20 - Elevated prostate specific antigen [PSA] AMB Urinalysis Automated Today Z13.9 - Encounter for screening, unspecified AMB Post Void Residual by ultrasound Today N40.1 - Benign prostatic hyperplasia with lower urinary tract symptoms Patient Instructions: The patient had an opportunity to ask questions regarding the treatment plan. All questions were answered. Physical exam, labs, and imaging were discussed and reviewed in detail. As well as risks, benefits, and discussion of treatment choices. No major barriers to understanding were identified. The patient expressed understanding and agreement with the above treatment plan. The patient was made aware they should contact our office by phone for worsening of their current condition, the appearance of new symptoms, or with any questions or concerns. Compliance is encouraged with any medications and follow up testing that is ordered. It is a privilege to be allowed the opportunity to participate in? your urological care.? Again, if you have any questions or concerns If you have any questions or concerns please do not hesitate to contact me. The office is [phone]. This note is constructed using voice recognition software. While every effort has been made to ensure accuracy divisional storekeeper errors may have been included. Yours sincerely, NAVNEET Sawyer Coding Level of Care Code Est Pt Level 3 (31233) Diagnoses PSA elevation R97.20 Urinary urgency R39.15 CPT Codes Post Residual Void - PVR CPT Code: 25355-Bcue Void Residual by ultrasound ([id number])
== END 2023-04-27 11:01 | disposition home or self-care (01) ==
PROVIDERS: PCP Internal Medicine; Visit Provider Nurse Practitioner Family
DX: R97.20 Elevated prostate specific antigen [PSA] (principal); R39.15 Urgency of urination; Z13.9 Encounter for screening, unspecified
CPT/HCPCS: 99213

== ENCOUNTER → 2023-04-27 10:11 | Outpatient (BNVA) | payer MEDICARE, MEDICAID, SELFPAY | PROVIDERS: PCP Internal Medicine; Visit Provider Nurse Practitioner Family | DX: R97.20 Elevated prostate specific antigen [PSA] (principal); R39.15 Urgency of urination | CPT/HCPCS: 51798; 81003; 99212 ==

== ENCOUNTER 2023-05-23 11:20 | Outpatient (AMB) | payer MEDICARE, MEDICAID, SELFPAY ==
--- NOTE | 2023-05-23 13:27 | MHC.OFFWIV ---
Intake Vital Signs 05/23/23 13:28 Height 5 ft 2 in Weight 157 lb 2 oz BMI 28.7 BP 100/66 Blood Pressure Location Rt brachial Position Sitting Pulse 95 Pulse Source Pulse Oximeter Temp 101 F H Temp Source Oral Pulse Oximetry (%) 98 Oxygen Delivery Method Room Air Intake Visit Reasons: EST/cough and temp [phone] Intake Note: Pt is here c/o on going cough and high temperature. Pt states he has been feeling off for two days. Patient Tobacco Use Status: Never used Tobacco Allergies No Known Allergies Allergy (Verified 05/23/23 13:28) Do you need a note to return to daycare/school/sports/work: No HPI HPI Comments History of Present Illness Details Patient presents to the walk-in today with complaints of cough and fever for last 2 days Patient resides in a [facility], staff reports that there is known flu in the house He has not taking any medications for fever or cough Patient denies headache, earache, sore throat, chest pain, shortness of breath, dizziness, weakness Cough is nonproductive and worse at night [facility] Medical History Screening for prostate cancer Medicare annual wellness visit, initial Colon cancer screening Overweight (BMI 25.0-29.9) alcohol syndrome Hypertension Hypercholesterolemia Mental and behavioral problem Impaired fasting blood sugar Surgical History History of biopsy Hx of colonoscopy History of oral surgery Family History Father No problems noted. Mother No problems noted. Brother Past heart attack Social History Household Members: Other Housing: Assisted Living Facility Housing Other:: Nursing Home Alcohol intake: never Patient Tobacco Use Status: Never used Tobacco e-Cigarette/Vaping Use: Never Used Second Hand Smoke Exposure: No service: No Current occupational status: disabled Cognitive needs: No Hearing needs: No Vision needs: Yes (glasses) Review of Systems Const All systems reviewed & are unremarkable except as noted in HPI and below Physical Exam Vital Signs: Last Vital Signs Temp 101 F H 05/23/23 13:28 Pulse 95 05/23/23 13:28 BP 100/66 05/23/23 13:28 Pulse Ox 98 05/23/23 13:28 Oxygen Delivery Method Room Air 05/23/23 13:28 BMI result Body Mass Index 28.7 General: awake, alert, oriented. Answers questions appropriately. Fully engaged in examination. Skin: warm, dry, intact HEENT: TMs intact bilaterally, without erythema or exudate. Posterior pharynx without erythema or exudate. Sclera without icterus or injection. Cardiac: External chest normal in appearance. Respiratory: + dry cough. LSCTAB. Abdomen: without gross distension. Neurological: Oriented to person, place, time and situation. Thought process intact. Psychiatric: Appropriate mood and affect. Good judgment and insight. Assessment & Plan Assessment & Plan (1) URI (upper respiratory infection): Code(s): J06.9 - Acute upper respiratory infection, unspecified Plan URI, no abx warranted. SARS-CoV2/FLU/RSV swab collected, results pending. Patient and staff aware they will be called with results. Benzonatate 100mg po bid as needed Tylenol 500 mg p.o. q.6 hours as needed for fever Rest, drink plenty of fluids, tylenol as needed. Follow up with pcp or in clinic for any new or worsening symptoms. Go to ER for shortness of breath, chest pain, palpitations, weakness, dizziness. Orders: Orders SARS-CoV2/FLU/RSV 05/23/23 J06.9 - Acute upper respiratory infection, unspecified Medications: New benzonatate 100 mg PO BID PRN 20 caps 0RF cough acetaminophen (Acetaminophen Extra Strength) 500 mg PO Q6H PRN 30 tabs 0RF fever Coding Level of Care Code Est Pt Level 4 (30146) Diagnoses URI (upper respiratory infection) J06.9
[2023-05-23 13:28] VITALS: BP 100/66; PULSE 95; TEMP 38.3; O2SAT 98; BMI 28.7
== END 2023-05-23 14:53 | disposition home or self-care (01) ==
PROVIDERS: PCP Internal Medicine; Visit Provider Registered Nurse Emergency
DX: J06.9 Acute upper respiratory infection, unspecified (principal)
CPT/HCPCS: 99213

== ENCOUNTER 2023-05-23 14:49 | Outpatient (REF) | payer MEDICARE, MEDICAID, SELFPAY ==
[2023-05-23 17:55] LABS: Influenza A PCR POSITIVE (Negative); Influenza B PCR NEGATIVE (Negative); Resp Syncy Virus RNA Qual PCR NEGATIVE (Negative); SARS COV2 PCR INHOUSE NEGATIVE (Negative)
== END 2023-05-23 14:50 | disposition home or self-care (01) ==
LOC: HO.LAB 14:49
PROVIDERS: Visit Provider Registered Nurse Emergency
DX: J06.9 Acute upper respiratory infection, unspecified (principal); Z11.52 Encounter for screening for COVID-19; Z20.828 Contact with and (suspected) exposure to other viral communicable diseases
CPT/HCPCS: 0241U

== ENCOUNTER 2023-06-21 09:57 | Outpatient (AMB) | payer MEDICARE, MEDICAID, SELFPAY ==
[2023-06-21 09:58] VITALS: BP 124/72; PULSE 79; O2SAT 98; BMI 28.5
--- NOTE | 2023-06-21 09:58 | A.OFFPC_ITS ---
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 Required: No Allergies No Known Allergies Allergy (Verified 06/21/23 09:58) Medication List - Last Reconciled 06/21/23 by Ben Gastelum MD acetaminophen (Acetaminophen Extra Strength) 500 mg PO Q6H PRN ammonium lactate 12% 1 appl topical BID benzonatate 100 mg PO BID PRN blood sugar diagnostic (FreeStyle Lite Strips) As directed blood-glucose meter (FreeStyle Lite Meter kit) As directed cholecalciferol (vitamin D3) 50 mcg PO QAM clotrimazole 1% 1 appl topical BID 4 weeks compress.stocking,knee,reg,med As directed 20-30 mm HG finasteride 5 mg PO DAILY 90 days hydrochlorothiazide 25 mg PO DAILY insulin degludec (Tresiba FlexTouch U-100 insulin) 10 units subcut DAILY insulin syringe-needle U-100 As directed lancets (FreeStyle Lancets) As directed lisinopril 10 mg PO DAILY metformin 500 mg PO DAILY miconazole nitrate 2% (Zeasorb AF) 1 appl topical BID oseltamivir (Tamiflu) 75 mg PO BID 5 days potassium chloride ER (Klor-Con M) 20 mEq PO DAILY pravastatin 40 mg PO DAILY 30 days tadalafil 5 mg PO DAILY 90 days terbinafine HCl 250 mg PO DAILY 12 weeks Tobacco use date assessed: 06/21/23 Dental Screening Dental Screen Date: 06/21/23 Did you have a dental visit in the last 12 months?: Yes Did you have a dental problem in the last 6 months where you did not have access to dental care?: No Was dental information given to patient?: Patient has dentist HPI Diabetes mellitus,hypercholesterolemia,hypokalemia HPI Details 53-year-old overweight male with diabete s mellitus hypertension hypercholesterolemia BPH coming in for follow-up. Last seen in February 2023 noted last month to be in [facility] for cough and treated for upper respiratory tract infection with symptomatic treatment. Patient also follows up with urology due to an elevated PSA on finasteride and Cialis. Concern about the blood sugars having hypoglycemia at times to 69 but patient is unaware. Patient presently on Tresiba 10 units and metformin 500 once a day. [facility] Medical History Screening for prostate cancer Medicare annual wellness visit, initial Colon cancer screening Overweight (BMI 25.0-29.9) alcohol syndrome Hypertension Hypercholesterolemia Mental and behavioral problem Impaired fasting blood sugar Surgical History History of biopsy Hx of colonoscopy History of oral surgery Family History Father No problems noted. Mother No problems noted. Brother Past heart attack Social History Household Members: Other Housing: Assisted Living Facility Housing Other:: [facility]ci Alcohol intake: never Patient Tobacco Use Status: Never used Tobacco e-Cigarette/Vaping Use: Never Used Second Hand Smoke Exposure: No service: No Current occupational status: disabled Cognitive needs: No Hearing needs: No Vision needs: Yes (glasses) Questionnaire PHQ-9 Over the last 2 weeks, how often have you been bothered by any of the following problems? 1. Little interest or pleasure in doing things: not at all 2. Feeling down, depressed, or hopeless: not at all 3. Trouble falling or staying asleep, or sleeping too much: not at all 4. Feeling tired or having little energy: not at all 5. Poor appetite or overeating: not at all 6. Feeling bad about yourself - or that you are a failure or have let yourself or your family down: not at all 7. Trouble concentrating on things, such as reading the newspaper or watching television: not at all 8. Moving or speaking so slowly that other people could have noticed. Or the opposite - being so fidgety or restless that you have been moving around a lot more than usual: not at all 9. Thoughts that you would be better off or of hurting yourself in some way: not at all Total score: 0 Depression Screening Interpretation: Negative Depression Screening Done: Yes Source: Developed by Drs. Michael Clayton, Sanjana B.WGeorge Townsend and colleagues, with an educational jose f from [employer]. Thrive Questionnaire Date Thrive assessed: 06/21/23 AUDIT C Alcohol Use Questionnaire (AUDIT-C) 1. How often do you have a drink containing alcohol?: Never 3. How often do you have six or more drinks on one occasion?: Never Total Score: 0 ANAI-7 AMB Questionnaire ANAI-7 Date ANAI - 7 assessed: 06/21/23 Source: Developed by Drs. Michael Clayton, George Bower and colleagues, with an educational jose f from [employer]. Physical exam (Primary Care) Vital Signs: Last Vital Signs Pulse 79 06/21/23 09:58 BP 124/72 06/21/23 09:58 Pulse Ox 98 06/21/23 09:58 Oxygen Delivery Method Room Air 06/21/23 09:58 BMI result Body Mass Index 28.5 Tobacco/Smoking Status: Tobacco use Status Tobacco use date assessed 06/21/23 06/21/23 09:59 Patient Tobacco Use Status Never used Tobacco 06/21/23 09:59 e-Cigarette/Vaping Use Never Used 06/21/23 09:59 PHQ-9: PHQ-9 Score PHQ-9: Total score 0 06/21/23 10:15 Depression Screening Interpretation: Negative Thrive Assessment: Date of Thrive Assessment Date Thrive assessed 06/21/23 06/21/23 09:59 Const General: alert; No acute distress Eyes Conjunctivae: conjunctivae normal Resp Auscultation: clear to auscultation bilaterally Cardio Rate: regular rate Rhythm: regular rhythm GI Inspection: Yes normal to inspection Extrem General: Yes normal to inspection and No edema Results AMB Hemoglobin A1c AMB Hemoglobin A1c 6.6 % Last Edit by JACOBO Myles on 06/21/23 10:15 Results Reviewed Results Reviewed: Laboratory Last Values Hgb A1c (Clinic) 6.6 % (4.0-6.0) H 06/21/23 10:01 Assessment and Plan Assessment & Plan (1) Diabetes type 1, controlled: Comment: [facility] Dr. Arias Code(s): E10.9 - Type 1 diabetes mellitus without complications Plan: Decrease the amount of carbohydrate intake, pasta, bread, rice and potatoes are all sugar and that is aside from all the sweet stuff, remember that fruits are good but they are Sweet also. Hemoglobin A1c goal of less than 6.5. Patient presently on Tresiba 16 units once a day metformin 500 mg once a day due to hypoglycemia , decrease tresiba to 5 u QD and increase metformin to 500 twice a day. (2) Overweight (BMI 25.0-29.9): Comment: Diet and exercise Code(s): E66.3 - Overweight Plan: Diet and exercise (3) Hypertension: Comment: Continue with blood pressure medication. Decrease salt intake and exercise Code(s): I10 - Essential (primary) hypertension Qualifiers: Hypertension type: essential hypertension Qualified Code(s): I10 - Essential (primary) hypertension Plan: Continue with blood pressure medication. Decrease salt intake and exercise patient on lisinopril 10 mg once a day hydrochlorothiazide 25 mg once a day. Blood work is requested (4) Hypercholesterolemia: Code(s): E78.00 - Pure hypercholesterolemia, unspecified Plan: Avoid fried foods, chicken skin, eggs, butter margarine, pastries and meat. Be it pork or beef they have a lot of cholesterol LDL goal of less than 100 and triglyceride of less than 150. Will ask for the other blood work. (5) PSA elevation: Code(s): R97.20 - Elevated prostate specific antigen [PSA] Plan: Patient follows up with urology on Cialis and finasteride will request for retesting a PSA Orders: Orders AMB Hemoglobin A1c Today E10.9 - Type 1 diabetes mellitus without complications Complete Blood Count Auto Diff 2 Months E10.9 - Type 1 diabetes mellitus without complications Comprehensive Met. Panel 2 Months E10.9 - Type 1 diabetes mellitus without complications Thyroid Stimulating Hormone 2 Months E10.9 - Type 1 diabetes mellitus without complications Prostate Specific Antigen Scr 2 Months E10.9 - Type 1 diabetes mellitus without complications Free T4 (Free Thyroxine) 2 Months E10.9 - Type 1 diabetes mellitus without complications Microalbumin, Random (w Creat) 2 Months E10.9 - Type 1 diabetes mellitus without complications, E11.65 - Type 2 diabetes mellitus with hyperglycemia Creatinine Urine 2 Months E10.9 - Type 1 diabetes mellitus without complications, E11.65 - Type 2 diabetes mellitus with hyperglycemia Lipid Panel 2 Months E10.9 - Type 1 diabetes mellitus without complications, E78.00 - Pure hypercholesterolemia, unspecified Vitamin B12 and Folate 2 Months E10.9 - Type 1 diabetes mellitus without complications Hemoglobin A1c 2 Months E10.9 - Type 1 diabetes mellitus without complications Medications: New metformin 1,000 mg PO BIDWMEAL 60 tabs 4RF E10.9 - Type 1 diabetes mellitus without complications insulin degludec (Tresiba FlexTouch U-100 insulin) 5 units (0.05 mL) subcut DAILY 15 mL 0RF E10.9 - Type 1 diabetes mellitus without complications metformin 500 mg PO BIDWMEAL 60 tabs 4RF E10.9 - Type 1 diabetes mellitus without complications Refilled clotrimazole 1% 1 appl topical BID 4 weeks 45 grams 1RF B35.3 - Tinea pedis Discontinued oseltamivir (Tamiflu) Discontinued Reason: Patient Completed Course 75 mg PO BID 5 days 10 caps 0RF Coding Level of Care Code Est Pt Level 4 (70582) Diagnoses Diabetes type 1, controlled E10.9 Overweight (BMI 25.0-29.9) E66.3 Essential hypertension I10 Hypertension type: essential hypertension Hypercholesterolemia E78.00 PSA elevation R97.20 Additional Codes PHQ-9 - 94591 - PHQ-9 Billing: ([id number])
== END 2023-06-21 10:46 | disposition home or self-care (01) ==
PROVIDERS: PCP Internal Medicine; Visit Provider Internal Medicine
DX: E10.65 Type 1 diabetes mellitus with hyperglycemia (principal); I10 Essential (primary) hypertension; E78.00 Pure hypercholesterolemia, unspecified; R97.20 Elevated prostate specific antigen [PSA]
CPT/HCPCS: 83036; 99214

== ENCOUNTER 2023-08-24 15:25 | Outpatient (REF) | payer MEDICARE, MEDICAID, SELFPAY ==
[2023-08-24 15:44] LABS: MANUAL DIFF FLAG NO
[2023-08-24 15:51] LABS: Basophils Percent Auto 0.6 % (0-2); Eosinophils Absolute Auto 0.1 X10*3/uL (0.0-0.4); Eosinophils Percent Auto 1.5 % (0-4); Hematocrit 40.9 % (42.0-52.0); Hemoglobin 13.7 g/dl (14.0-18.0); Imm Gran Abs Auto 0.02 X10*3/uL (0.00-0.03); Imm Gran Pct Auto 0.4 % (0.0-0.4); Lymphocytes Absolute Auto 2.1 X10*3/uL (1.2-4.9); Lymphocytes Percent Auto 39.7 % (20-40); Mean Corpuscular HGB Conc 33.5 g/dl (31.0-36.0); Mean Corpuscular Hemoglobin 28.8 pg (27.0-33.0); Mean Corpuscular Volume 86.1 fL (80.0-98.0); Monocytes Absolute Auto 0.4 X10*3/uL (0.1-1.2); Monocytes Percent Auto 6.7 % (2-11); Neutrophils Absolute Auto 2.7 x10*3/uL (2.0-8.3); Neutrophils Percent Auto 51.1 % (45-73); Platelet Count 250 X10*3/uL (160-400); Red Blood Count 4.75 X10*6/uL (4.60-5.80); Red Cell Distribution Width 13.3 % (11.0-16.0); White Blood Count 5.4 X10*3/uL (4.8-10.8)
[2023-08-24 16:50] LABS: Estimated Average Glucose 123 mg/dL; Hemoglobin A1c % 5.9 % (<6.0)
[2023-08-24 16:53] LABS: Alanine Aminotransferase 23 U/L (0-40); Albumin Level 4.2 g/dL (3.5-5.0); Alkaline Phosphatase 60 U/L (39-117); Anion Gap 11 (12-20); Aspartate Amino Transferase 17 U/L (5-37); Bilirubin Total 0.2 mg/dL (0.0-1.0); Blood Urea Nitrogen 15 mg/dL (9-16); Calcium 9.9 mg/dL (8.4-10.2); Carbon Dioxide 30 mmol/L (22-29); Chloride 105 mmol/L (96-108); Cholesterol 164 mg/dL (<200); Estimated Glomerular Filt Rate > 60; Glucose Random 122 mg/dL (60-115); HDL Cholesterol 47 mg/dL (>40); LDL Cholesterol Calculated 97 mg/dL (<100); Potassium 3.9 mmol/L (3.3-5.1); Sodium 142 mmol/L (135-145); Total Protein 6.7 g/dL (6.5-8.0); Triglycerides 100 mg/dL (<150)
[2023-08-24 17:08] LABS: PSA,Total (Free>4and<10) 2.78 ng/mL (0.00-4.00)
[2023-08-24 17:11] LABS: Free T4 (Free Thyroxine) 0.98 ng/dL (0.71-1.85); Thyroid Stimulating Hormone 1.07 uIU/mL (0.32-4.0)
[2023-08-24 17:23] LABS: Folate 10.1 ng/mL (> or = 4.0); Vitamin B12 340 pg/mL (200-900)
[2023-08-24 22:33] LABS: Creatinine Urine 172.81 mg/dL; Microalbum/Creatinine Ratio Ur 5.7 ug/mg cr (<30)
== END 2023-08-24 15:26 | disposition home or self-care (01) ==
LOC: HO.LAB 15:25
PROVIDERS: Nurse Practitioner Family; PCP Internal Medicine; Visit Provider Internal Medicine
DX: R97.20 Elevated prostate specific antigen [PSA] (principal); E10.9 Type 1 diabetes mellitus without complications; E11.65 Type 2 diabetes mellitus with hyperglycemia; E78.00 Pure hypercholesterolemia, unspecified
CPT/HCPCS: 36415; 80053; 80061; 82043; 82570; 82607; 82746; 83036; 84153; 84439; 84443; 85025

== ENCOUNTER 2023-08-26 10:30 | Outpatient (AMB) | payer MEDICARE, MEDICAID, SELFPAY ==
--- NOTE | 2023-08-26 10:34 | A.OFFVIS_ITS ---
Intake Visit Reasons: 4m/PSA Intake Note: Patient is present for Follow Up elevated psa Urology Medications: finasteride, cialis Antibiotic Allergy: None Blood Thinner: None Town Planner Required: No Accompanied by: Other Relationship Allergies No Known Allergies Allergy (Verified 08/26/23 11:16) Medication List - Last Reconciled 08/26/23 by NAVNEET Sawyer acetaminophen (Acetaminophen Extra Strength) 500 mg PO Q6H PRN ammonium lactate 12% 1 appl topical BID benzonatate 100 mg PO BID PRN blood sugar diagnostic (FreeStyle Lite Strips) As directed blood-glucose meter (FreeStyle Lite Meter kit) As directed cholecalciferol (vitamin D3) 50 mcg PO QAM clotrimazole 1% 1 appl topical BID 4 weeks compress.stocking,knee,reg,med As directed 20-30 mm HG finasteride 5 mg PO DAILY 90 days hydrochlorothiazide 25 mg PO DAILY insulin degludec (Tresiba FlexTouch U-100 insulin) 5 units (0.05 mL) subcut DAILY insulin syringe-needle U-100 As directed lancets (FreeStyle Lancets) As directed lisinopril 10 mg PO DAILY metformin 500 mg PO BIDWMEAL miconazole nitrate 2% (Zeasorb AF) 1 appl topical BID potassium chloride ER (Klor-Con M) 20 mEq PO DAILY pravastatin 40 mg PO DAILY 30 days tadalafil 5 mg PO DAILY 90 days terbinafine HCl 250 mg PO DAILY 12 weeks HPI Comments Details: Tomasz is a pleasant 53 year old male patient of Dr. Gastelum who was accompanied by one of the [facility] of [facility]. He has a past medical history of alcohol syndrome, hypertension, hypercholesteremia, and mental and behavioral problem. He presents to the office today for follow-up of his elevated PSA. Of note, patient underwent prostate biopsy with Dr. Neal September 2022 NAD. In discussion with the patient today reports to be doing and feeling well. He reports compliance with 5 mg of finas teride daily. He reports noting urinary urgency and frequency are well controlled with 5 mg of Cialis daily. He currently denies any bothersome urinary issues or concerns. Discusses his recent hospitalization to [facility] 3 months ago for issues with hypoglycemia. Recent PSA results reviewed with the patient today as noted and trended below. In office urinalysis results reviewed with the patient today. He otherwise denies urinary urgency, urinary frequency, incontinence, nocturia, hematuria, dysuria, foul smelling urine, changes to urinary stream, flank pain, fever, and or chills. He otherwise offers no other issues or concerns at this time. Elevated PSA 07/15- 8.0, 08/15- 9.9, 08/15- 8.6 percent free 12%, 04/16 4.8 percent free 13%, 09/15 2.9 Prostate biopsy - 10/15 [facility] Medical History Screening for prostate cancer Medicare annual wellness visit, initial Colon cancer screening Overweight (BMI 25.0-29.9) alcohol syndrome Hypertension Hypercholesterolemia Mental and behavioral problem Impaired fasting blood sugar Surgical History History of biopsy Hx of colonoscopy History of oral surgery Family History Father No problems noted. Mother No problems noted. Brother Past heart attack Social History Household Members: Other Housing: Assisted Living Facility Housing Other:: [facility] Alcohol intake: never Patient Tobacco Use Status: Never used Tobacco e-Cigarette/Vaping Use: Never Used Second Hand Smoke Exposure: No service: No Current occupational status: disabled Cognitive needs: No Hearing needs: No Vision needs: Yes (glasses) Review of Systems Const All systems reviewed & are unremarkable except as noted in HPI and below Eyes Reports no additional complaints ENT Reports no additional complaints Card Reports no additional complaints Resp Reports no additional complaints GI Reports no additional complaints Reports as per HPI Musc Reports no additional complaints Neuro Reports no additional complaints Psych Reports as per HPI Endo Reports as per HPI Levi/Lymph Reports no additional complaints Aller/Immun Reports no additional complaints Physical Exam Const General: cooperative, healthy appearing, comfortable, no acute distress, well developed, alert and awake Nutritional Appearance: average body habitus Orientation/consciousness: patient oriented x3 Limitations: no limitations HEENT Head: Yes normal to inspection, Yes normocephalic and Yes atraumatic Ears: hearing grossly normal bilaterally Eyes General: appearance normal, both eyes and all related structures Neck Neck: Yes normal visual inspection and Yes trachea midline Chest Chest palpation & inspection: normal inspection of the chest Resp Effort & Inspection: normal respiratory effort and able to speak in complete sentences Cardio Rate: regular rate GI Inspection: Yes normal to inspection General: Yes no CVA tenderness Back/Spine/Pelvis Back: no CVA tenderness Skin General skin exam: no rashes or lesions noted Neuro General: patient oriented x3 Extrem General: Yes normal to inspection Psych Appearance: grossly normal and well kempt Mental Status: mental status grossly normal Speech and movement: Normal speech and movement present and Clear speech present Affect: normal affect Attitude: cooperative Thought process: Normal thought process present Thought content: Normal thought content present Insight: Fair insight present (Psych) Judgement: Fair judgement present (Psych) Results AMB Urinalysis, Automated UA Leukoctes 0 Boogie/uL Last Edit by [employer] on 08/26/23 11:07 UA Nitrite Negative Last Edit by [employer] on 08/26/23 11:07 UA Urobilinogen 0.2 mg/dL Last Edit by [employer] on 08/26/23 11:07 UA Protein 0 mg/dL Last Edit by [employer] on 08/26/23 11:07 UA pH 7.0 Last Edit by [employer] on 08/26/23 11:07 UA Blood 0 Bharat/uL Last Edit by [employer] on 08/26/23 11:07 UA Specific [place] 1.015 Last Edit by [employer] on 08/26/23 11:07 UA Ketone Negative Last Edit by [employer] on 08/26/23 11:07 UA Bilirubin 0 mg/dL Last Edit by [employer] on 08/26/23 11:07 UA Glucose 0 mg/dL Last Edit by [employer] on 08/26/23 11:07 Results Reviewed Results Reviewed: Laboratory Last Values Urine pH (Auto) 7.0 08/26/23 11:01 Specific [place] (Auto) 1.015 08/26/23 11:01 Urine Protein (Auto) 0 mg/dL 08/26/23 11:01 Glucose (UA)(Auto) 0 mg/dL 08/26/23 11:01 Urine Ketones (Auto) Negative 08/26/23 11:01 Urine Blood (Auto) 0 Bharat/uL 08/26/23 11:01 Urine Nitrite (Auto) Negative 08/26/23 11:01 Urine Bilirubin (Auto) 0 mg/dL 08/26/23 11:01 Urine Urobilinogen (Auto) 0.2 mg/dL 08/26/23 11:01 Leukocyte Esterase (Auto) 0 Boogie/uL 08/26/23 11:01 Assessment & Plan Assessment & Plan (1) PSA elevation: Code(s): R97.20 - Elevated prostate specific antigen [PSA] Category: Medical (2) BPH loc w urin obs/LUTS: Code(s): N40.1 - Benign prostatic hyperplasia with lower urinary tract symptoms Category: Medical Plan In office urinalysis results reviewed with the patient today; as noted above. Recent PSA results reviewed with the patient today; as noted above. Continue 5 mg of Cialis and finasteride as prescribed. Patient reports be happy with current voiding parameters. Patient currently denies any bothersome urinary issues or concerns. Will obtain PSA in 4 months. Follow-up in 4 months with lab to be completed prior; or sooner with any issues, concerns, and or questions. Orders: Orders AMB Urinalysis Automated Today Z13.9 - Encounter for screening, unspecified Prostate Specific Antigen 4 Months R97.20 - Elevated prostate specific antigen [PSA] Patient Instructions: The patient had an opportunity to ask questions regarding the treatment plan. All questions were answered. Physical exam, labs, and imaging were discussed and reviewed in detail. As well as risks, benefits, and discussion of treatment choices. No major barriers to understanding were identified. The patient expressed understanding and agreement with the above treatment plan. The patient was made aware they should contact our office by phone for worsening of their current condition, the appearance of new symptoms, or with any questions or concerns. Compliance is encouraged with any medications and follow up testing that is ordered. It is a privilege to be allowed the opportunity to participate in? your urological care.? Again, if you have any questions or concerns If you have any questions or concerns please do not hesitate to contact me. The office is [phone]. This note is constructed using voice recognition software. While every effort has been made to ensure accuracy fixed wing aircraft crew chief errors may have been included. Yours sincerely, Gabby Jeffries, FORGING ROLL OPERATOR-BC Coding Level of Care Code Est Pt Level 3 (92034) Diagnoses PSA elevation R97.20 BPH loc w urin obs/LUTS N40.1
== END 2023-08-26 11:18 | disposition home or self-care (01) ==
PROVIDERS: PCP Internal Medicine; Visit Provider Nurse Practitioner Family
DX: R97.20 Elevated prostate specific antigen [PSA] (principal); N40.1 Benign prostatic hyperplasia with lower urinary tract symptoms; Z13.9 Encounter for screening, unspecified
CPT/HCPCS: 99213

== ENCOUNTER → 2023-08-26 10:30 | Outpatient (BNVA) | payer MEDICARE, MEDICAID, SELFPAY | PROVIDERS: PCP Internal Medicine; Visit Provider Nurse Practitioner Family | DX: R97.20 Elevated prostate specific antigen [PSA] (principal); N40.1 Benign prostatic hyperplasia with lower urinary tract symptoms; N13.8 Other obstructive and reflux uropathy; Z79.899 Other long term (current) drug therapy | CPT/HCPCS: 81003; 99212 ==

== ENCOUNTER 2023-09-21 11:28 | Outpatient (AMB) | payer MEDICARE, MEDICAID, SELFPAY ==
[2023-09-21 11:36] VITALS: BP 118/80; PULSE 60; O2SAT 97; BMI 27.8
--- NOTE | 2023-09-21 11:36 | A.OFFVIS_ITS ---
Intake Vital Signs 09/21/23 11:36 Height 5 ft 2 in Weight 152 lb 0.2 oz BMI 27.8 BP 118/80 Blood Pressure Location Lt brachial Position Sitting Pulse 60 Pulse Source Pulse Oximeter Pulse Oximetry (%) 97 Oxygen Delivery Method Room Air Intake Visit Reasons: [facility] Financial Analyst Required: No Allergies No Known Allergies Allergy (Verified 09/21/23 11:36) Medication List - Last Reconciled 09/21/23 by Ben Gastelum MD acetaminophen (Acetaminophen Extra Strength) 500 mg PO Q6H PRN ammonium lactate 12% 1 appl topical BID blood sugar diagnostic (FreeStyle Lite Strips) As directed blood-glucose meter (FreeStyle Lite Meter kit) As directed cholecalciferol (vitamin D3) 50 mcg PO QAM clotrimazole 1% 1 appl topical BID 4 weeks compress.stocking,knee,reg,med As directed 20-30 mm HG finasteride 5 mg PO DAILY 90 days hydrochlorothiazide 25 mg PO DAILY insulin degludec (Tresiba FlexTouch U-100 insulin) 10 units subcut DAILY insulin syringe-needle U-100 As directed lancets (FreeStyle Lancets) As directed lisinopril 10 mg PO DAILY metformin 500 mg PO BIDWMEAL miconazole nitrate 2% (Zeasorb AF) 1 appl topical BID potassium chloride ER (Klor-Con M) 20 mEq PO DAILY pravastatin 40 mg PO DAILY 30 days tadalafil 5 mg PO DAILY 90 days terbinafine HCl 250 mg PO DAILY 12 weeks HPI AWV HPI Details 3-year-old overweight male with diabetes mellitus hypertension hypercholesterolemia last seen in 06/14/2023 patient is here for annual well visit. Patient has up-to-date with colonoscopy. Patient was noted to have an elevated PSA and was sent to Urology seen in 09/12/2023 on finasteride and Cialis patient has underwent a prostate biopsy in October 12- [facility] Medical History Screening for prostate cancer Medicare annual wellness visit, initial Colon cancer screening Overweight (BMI 25.0-29.9) alcohol syndrome Hypertension Hypercholesterolemia Mental and behavioral problem Impaired fasting blood sugar Surgical History History of biopsy Hx of colonoscopy History of oral surgery Family History Father No problems noted. Mother No problems noted. Brother Past heart attack Social History Household Members: Other Housing: Assisted Living Facility Housing Other:: Intermediate Alcohol intake: never Patient Tobacco Use Status: Never used Tobacco e-Cigarette/Vaping Use: Never Used Second Hand Smoke Exposure: No service: No Current occupational status: disabled Cognitive needs: No Hearing needs: No Vision needs: Yes (glasses) Questionnaire Medicare Wellness Checkup What is your age?: 65-69 (18-64) What gender do you identify with?: male During the past 4 weeks, how much have you been bothered by emotional problems such as feeling anxious, depressed, irritable, sad or downhearted, and blue?: slightly During the past 4 weeks, has your physical & emotional health limited your social activities with family, friends, neighbors, or groups?: not at all During the past 4 weeks, how much bodily pain have you generally had?: no pain During the past 4 weeks, was someone available to help you if you needed & wanted help?: yes, as much as I wanted During the past 4 weeks, what was the hardest physical activity you could do for at least 2 minutes?: moderate Can you get to places out of walking distance without help? (For eg., can you travel alone on buses, taxis or drive your car?): No Can you go shopping for groceries or clothes without someone's help?: No Can you prepare your own meals?: Yes Can you do your housework without help?: Yes Because of any health problems, do you need the help of another person with your personal care needs such as eating, bathing, dressing or getting around the house?: No Can you handle your own money without help?: No During the past 4 weeks, how would you rate your health in general?: very good During the past 4 weeks how have things been going for you?: very well; could hardly better Are you having difficulties driving your car?: not applicable, I don't use a car Do you always fasten your seat belt when you are in a car?: yes, usually During past 4 weeks, have you been bothered by the following: never: Falling or dizzy when standing up, Sexual problems?, Trouble eating well?, Teeth or denture problems? and Problems using the telephone? and seldom: Tiredness or fatigue? Have you fallen 2 or more times in the past year?: No Are you afraid of falling?: No Are you a smoker?: no During the past 4 weeks, how many drinks of wine, beer, or other alcoholic beverages did you have?: no alcohol at all Do you exercise for about 20 minutes 3 or more times a week?: yes, most of the time Have you been given information to help with the following?: yes: Hazards in your house that might hurt you? and yes: Keeping track of your medications? How often do you have trouble taking medicines the way you have been told to take them?: I always take medicine as prescribed How confident are you that you can control & manage most of your health problems?: somewhat confident What is your race?: Black or PHQ-9 Over the last 2 weeks, how often have you been bothered by any of the following problems? 1. Little interest or pleasure in doing things: several days 2. Feeling down, depressed, or hopeless: not at all 3. Trouble falling or staying asleep, or sleeping too much: not at all 4. Feeling tired or having little energy: not at all 5. Poor appetite or overeating: not at all 6. Feeling bad about yourself - or that you are a failure or have let yourself or your family down: not at all 7. Trouble concentrating on things, such as reading the newspaper or watching television: not at all 8. Moving or speaking so slowly that other people could have noticed. Or the opposite - being so fidgety or restless that you have been moving around a lot more than usual: not at all 9. Thoughts that you would be better off or of hurting yourself in some way: not at all Total score: 1 Depression Screening Interpretation: Negative Depression Screening Done: Yes Source: Developed by Drs. Michael Clayton, Sanjana Mcclure, George Jaquez and colleagues, with an educational jose f from [employer]. Review of Systems Const Denies poor appetite and Denies weakness Eyes Denies no additional complaints ENT Reports Normal hearing present, Denies dizziness, Denies nasal congestion, Denies tinnitus and Denies sore throat Card Denies chest pain, Denies syncope, Denies rapid heart rate and Denies dyspnea Resp Denies cough and Denies dyspnea GI Denies change in stool character, Reports constipation, Denies diarrhea, Denies nausea and Denies vomiting Denies dysuria and Denies urinary frequency Neuro Reports Normal hearing present, Denies confusion, Denies dizziness, Denies syncope and Denies weakness Psych Denies confusion Physical Exam Vital Signs: Last Vital Signs Pulse 60 09/21/23 11:36 BP 118/80 09/21/23 11:36 Pulse Ox 97 09/21/23 11:36 Oxygen Delivery Method Room Air 09/21/23 11:36 BMI result Body Mass Index 27.8 Const General: No confusion Orientation/consciousness: No confusion HEENT Head: Yes normocephalic Ears: external ears normal and TM's normal bilaterally Face and sinus: Yes normal facial exam Mouth: moist mucous membranes Throat: Yes tonsils normal Eyes Conjunctivae: conjunctivae normal Pupils: Equal, round and reactive pupils present and Pupil accommodation reflex normal Direct Ophthalmoscopy: normal light reflex Neck Neck: No lymphadenopathy Thyroid: Thyroid normal Chest Chest palpation & inspection: normal inspection of the chest Resp Effort & Inspection: normal respiratory effort and no audible wheezes Auscultation: clear to auscultation bilaterally, no crackles, no wheezes and lung sounds not diminished Cardio Rate: regular rate Rhythm: regular rhythm Peripheral pulses: radial pulses present and dorsalis pedis present GI Other: guaiac negative, prostate N Palpation (GI): no masses Auscultation: normal bowel sounds and normoactive bowel sounds Rectal Exam - Male: Yes deferred Male General Exam: Yes normal external exam Skin General skin exam: no rashes or lesions noted Rashes: no rashes Neuro General: No confusion Cranial nerves: Yes Equal, round and reactive pupils present and Yes Normal hearing present Cognition (Neuro): normal cognition Gait exam (Neuro): Normal gait present Motor exam (neuro): 5/5 motor strength present throughout Deep tendon reflexes (DTR's): Right brachioradialis reflex intensity grade: 2+, Left brachioradialis reflex intensity grade: 2+, Right patellar reflex intensity grade: 2+ and Left patellar reflex intensity grade: 2+ Extrem General: No edema Assessment & Plan Assessment & Plan (1) Medicare annual wellness visit, subsequent: Code(s): Z00.00 - Encounter for general adult medical examination without abnormal findings Plan: Patient is advised to eat healthy, keep well hydrated, keep active and have adequate sleep. (2) Diabetes type 1, controlled: Comment: [facility] Dr. Arias Code(s): E10.9 - Type 1 diabetes mellitus without complications Plan: Decrease the amount of carbohydrate intake, pasta, bread, rice and potatoes are all sugar and that is aside from all the sweet stuff, remember that fruits are good but they are Sweet also. Hemoglobin A1c goal of less than 6.5. Presently on Tresiba metformin (3) Overweight (BMI 25.0-29.9): Comment: Diet and exercise Code(s): E66.3 - Overweight Plan: Diet and exercise (4) Hypertension: Comment: Continue with blood pressure medication. Decrease salt intake and exercise Code(s): I10 - Essential (primary) hypertension Qualifiers: Hypertension type: essential hypertension Qualified Code(s): I10 - Essential (primary) hypertension Plan: Continue with blood pressure medication. Decrease salt intake and exercise takes lisinopril 10 mg once a day hydrochlorothiazide 25 mg once a day (5) Hypercholesterolemia: Code(s): E78.00 - Pure hypercholesterolemia, unspecified Plan: Avoid fried foods, chicken skin, eggs, butter margarine, pastries and meat. Be it pork or beef they have a lot of cholesterol LDL goal of less than 100 and triglyceride of less than 150. On pravastatin 40 mg once a day (6) PSA elevation: Code(s): R97.20 - Elevated prostate specific antigen [PSA] Plan: Patient follows up with urology and has had prostate biopsy negative and continues for PSA surveillance. 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 Medications: Changed From insulin degludec (Tresiba FlexTouch U-100 insulin) 5 units (0.05 mL) subcut DAILY 15 mL 0RF E10.9 - Type 1 diabetes mellitus without complications To insulin degludec (Tresiba FlexTouch U-100 insulin) 10 units subcut DAILY E10.9 - Type 1 diabetes mellitus without complications Quality Reporting (2019) Depression/Bipolar (159/160/161/177) PHQ-9: Total score: 1 Coding Level of Care Code Medicare Subsequent (G0439) Diagnoses Medicare annual wellness visit, subsequent Z00.00 Diabetes type 1, controlled E10.9 Overweight (BMI 25.0-29.9) E66.3 Essential hypertension I10 Hypertension type: essential hypertension Hypercholesterolemia E78.00 PSA elevation R97.20 Mental and behavioral problem F48.9; F69 Additional Codes PHQ-9 - 26286 - PHQ-9 Billing: ([id number])
== END 2023-09-21 12:39 | disposition home or self-care (01) ==
PROVIDERS: PCP Internal Medicine; Visit Provider Internal Medicine
DX: Z00.00 Encounter for general adult medical examination without abnormal findings (principal); E10.9 Type 1 diabetes mellitus without complications; E66.3 Overweight; I10 Essential (primary) hypertension; E78.00 Pure hypercholesterolemia, unspecified; R97.20 Elevated prostate specific antigen [PSA]; F48.9 Nonpsychotic mental disorder, unspecified; F69 Unspecified disorder of adult personality and behavior
CPT/HCPCS: G0439

== ENCOUNTER 2023-10-06 15:44 | Emergency (ER) | payer OTHER, MEDICARE, MEDICAID, SELFPAY ==
[2023-10-06 16:02] VITALS: BP 139/80; PULSE 84; RESP 17; TEMP 36.4; O2SAT 97; BMI 27.3
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
[2023-10-06 16:54] VITALS: BP 139/80; PULSE 84; RESP 17; TEMP 36.4; O2SAT 97
== END 2023-10-06 16:55 | disposition home or self-care (01) ==
PROVIDERS: Emergency Provider Emergency Medicine; PCP Internal Medicine
DX: Z04.1 Encounter for examination and observation following transport accident (principal); E11.9 Type 2 diabetes mellitus without complications; I10 Essential (primary) hypertension
CPT/HCPCS: 99282

== ENCOUNTER 2023-10-14 13:24 | Outpatient (AMB) | payer OTHER, MEDICARE, MEDICAID, SELFPAY ==
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
[2023-10-14 13:43] VITALS: BP 124/74; PULSE 69; O2SAT 97; BMI 27.6
== END 2023-10-14 16:32 | disposition home or self-care (01) ==
PROVIDERS: PCP Internal Medicine; Visit Provider Nurse Practitioner Family
DX: Z04.3 Encounter for examination and observation following other accident (principal)
CPT/HCPCS: 99213

== ENCOUNTER → 2023-10-20 23:59 | Outpatient (BNV) | payer MEDICARE, MEDICAID, SELFPAY | PROVIDERS: PCP Internal Medicine; Visit Provider Internal Medicine | DX: N17.9 Acute kidney failure, unspecified (principal) | CPT/HCPCS: G0179 ==

== ENCOUNTER → 2023-11-25 23:59 | Outpatient (BNV) | payer MEDICARE, MEDICAID, SELFPAY | PROVIDERS: PCP Internal Medicine; Visit Provider Internal Medicine | DX: G31.84 Mild cognitive impairment of uncertain or unknown etiology (principal); I10 Essential (primary) hypertension; N17.9 Acute kidney failure, unspecified | CPT/HCPCS: G0179 ==

== ENCOUNTER 2023-12-23 15:07 | Outpatient (REF) | payer MEDICARE, MEDICAID, SELFPAY ==
[2023-12-23 16:49] LABS: Prostate Specific Antigen 2.99 ng/mL (<0.05-4.0)
== END 2023-12-23 15:08 | disposition home or self-care (01) ==
LOC: HO.LAB 15:07
PROVIDERS: PCP Internal Medicine; Visit Provider Nurse Practitioner Family
DX: R97.20 Elevated prostate specific antigen [PSA] (principal); Z12.5 Encounter for screening for malignant neoplasm of prostate
CPT/HCPCS: 36415; 84153

== ENCOUNTER 2023-12-27 10:51 | Outpatient (AMB) | payer MEDICARE, MEDICAID, SELFPAY ==
--- NOTE | 2023-12-27 10:57 | MHC.OFFVIS ---
Intake Visit Reasons: 4m/PSA Intake Note: Patient is present for Follow Up elevated psa Urology Medications: finasteride, cialis Antibiotic Allergy: None Blood Thinner: None Descriptive Catalog Librarian Required: No Accompanied by: Other Relationship Allergies No Known Allergies Allergy (Verified 12/27/23 11:24) Medication List - Last Reconciled 12/27/23 by NAVNEET Sawyer acetaminophen (Acetaminophen Extra Strength) 500 mg PO Q6H PRN ammonium lactate 12% 1 appl topical BID blood sugar diagnostic (FreeStyle Lite Strips) As directed blood-glucose meter (FreeStyle Lite Meter kit) As directed cholecalciferol (vitamin D3) 50 mcg PO QAM clotrimazole 1% 1 appl topical BID 4 weeks compress.stocking,knee,reg,med As directed 20-30 mm HG finasteride 5 mg PO DAILY 90 days hydrochlorothiazide 25 mg PO DAILY insulin degludec (Tresiba FlexTouch U-100 insulin) 5 units (0.05 mL) subcut DAILY insulin syringe-needle U-100 As directed lancets (FreeStyle Lancets) As directed lisinopril 10 mg PO DAILY metformin 500 mg PO BIDWMEAL miconazole nitrate 2% (Zeasorb AF) 1 appl topical BID potassium chloride ER (Klor-Con M) 20 mEq PO DAILY pravastatin 40 mg PO DAILY 30 days tadalafil 5 mg PO DAILY 90 days HPI Comments Details: Tomasz is a pleasant 53 year old male patient of Dr. Gastelum who was accompanied by one of the staff members of the long-term he resides in. He has a past medical history of alcohol syndrome, hypertension, hypercholesteremia, and mental and behavioral problem. He presents to the office today for follow-up of his elevated PSA. Of note, patient underwent prostate biopsy with Dr. Neal September 2022 ECHO. In discussion with the patient today reports to be doing and feeling well. He reports compliance with 5 mg of finasteride daily as well as Cialis. He reports noting urinary urgency and frequency are well controlled with 5 mg of Cialis daily. He currently denies any bothersome urinary issues or concerns. Recent PSA results reviewed with the patient today as noted and trended below. In office urinalysis results reviewed with the patient today. He otherwise denies urinary urgency, urinary frequency, incontinence, nocturia, hematuria, dysuria, foul smelling urine, changes to urinary stream, flank pain, fever, and or chills. He otherwise offers no other issues or concerns at this time. Elevated PSA 07/15- 8.0, 08/15- 9.9, 08/15- 8.6 percent free 12%, 04/16 4.8 percent free 13%, 09/15 2.9, 12/16 3.0 Prostate biopsy - 10/15 [facility] Medical History Screening for prostate cancer Medicare annual wellness visit, initial Colon cancer screening Overweight (BMI 25.0-29.9) alcohol syndrome Hypertension Hypercholesterolemia Mental and behavioral problem Impaired fasting blood sugar Surgical History History of biopsy Hx of colonoscopy History of oral surgery Family History Father No problems noted. Mother No problems noted. Brother Past heart attack Social History Household Members: Other Housing: Assisted Living Facility Housing Other:: [facility] Alcohol intake: never Patient Tobacco Use Status: Never used Tobacco e-Cigarette/Vaping Use: Never Used Second Hand Smoke Exposure: No service: No Current occupational status: disabled Cognitive needs: No Hearing needs: No Vision needs: Yes (glasses) Results AMB Urinalysis, Automated UA Leukoctes 0 Boogie/uL Last Edit by Milvia Cedeno on 12/27/23 11:18 UA Nitrite Negative Last Edit by Milvia Cedeno on 12/27/23 11:18 UA Urobilinogen 0.2 mg/dL Last Edit by Milvia Cedeno on 12/27/23 11:18 UA Protein 0 mg/dL Last Edit by Milvia Cedeno on 12/27/23 11:18 UA pH 7.0 Last Edit by Milvia Cedeno on 12/27/23 11:18 UA Blood 0 Bharat/uL Last Edit by Milvia Cedeno on 12/27/23 11:18 UA Specific [place] 1.015 Last Edit by Milvia Cedeno on 12/27/23 11:18 UA Ketone Negative Last Edit by Milvia Cedeno on 12/27/23 11:18 UA Bilirubin 0 mg/dL Last Edit by Milvia Cedeno on 12/27/23 11:18 UA Glucose 0 mg/dL Last Edit by Milvia Cedeno on 12/27/23 11:18 Results Reviewed Results Reviewed: Laboratory Last Values Urine pH (Auto) 7.0 12/27/23 11:13 Specific [place] (Auto) 1.015 12/27/23 11:13 Urine Protein (Auto) 0 mg/dL 12/27/23 11:13 Glucose (UA)(Auto) 0 mg/dL 12/27/23 11:13 Urine Ketones (Auto) Negative 12/27/23 11:13 Urine Blood (Auto) 0 Bharat/uL 12/27/23 11:13 Urine Nitrite (Auto) Negative 12/27/23 11:13 Urine Bilirubin (Auto) 0 mg/dL 12/27/23 11:13 Urine Urobilinogen (Auto) 0.2 mg/dL 12/27/23 11:13 Leukocyte Esterase (Auto) 0 Boogie/uL 12/27/23 11:13 Assessment & Plan Assessment & Plan (1) PSA elevation: Code(s): R97.20 - Elevated prostate specific antigen [PSA] Category: Medical (2) BPH loc w urin obs/LUTS: Code(s): N40.1 - Benign prostatic hyperplasia with lower urinary tract symptoms Category: Medical Plan In office urinalysis results reviewed with the patient today; as noted above. Recent PSA results reviewed with the patient today; as noted above. Continue 5 mg of Cialis and finasteride as prescribed. Patient reports be happy with current voiding parameters. Patient currently denies any bothersome urinary issues or concerns. Will obtain PSA in 4 months. Follow-up in 4 months with lab to be completed prior; or sooner with any issues, concerns, and or questions. Orders: Orders Prostate Specific Antigen 4 Months N40.1 - Benign prostatic hyperplasia with lower urinary tract symptoms, R97.20 - Elevated prostate specific antigen [PSA] AMB Urinalysis Automated Today Z13.9 - Encounter for screening, unspecified Patient Instructions: The patient had an opportunity to ask questions regarding the treatment plan. All questions were answered. Physical exam, labs, and imaging were discussed and reviewed in detail. As well as risks, benefits, and discussion of treatment choices. No major barriers to understanding were identified. The patient expressed understanding and agreement with the above treatment plan. The patient was made aware they should contact our office by phone for worsening of their current condition, the appearance of new symptoms, or with any questions or concerns. Compliance is encouraged with any medications and follow up testing that is ordered. It is a privilege to be allowed the opportunity to participate in? your urological care.? Again, if you have any questions or concerns If you have any questions or concerns please do not hesitate to contact me. The office is [phone]. This note is constructed using voice recognition software. While every effort has been made to ensure accuracy project development manager errors may have been included. Yours sincerely, NAVNEET Sawyer Coding Level of Care Code Est Pt Level 3 (10219) Complex EM visit Add On G2211 Diagnoses PSA elevation R97.20 BPH loc w urin obs/LUTS N40.1
== END 2023-12-27 11:22 | disposition home or self-care (01) ==
PROVIDERS: PCP Internal Medicine; Visit Provider Nurse Practitioner Family
DX: R97.20 Elevated prostate specific antigen [PSA] (principal); N40.1 Benign prostatic hyperplasia with lower urinary tract symptoms; Z13.9 Encounter for screening, unspecified
CPT/HCPCS: 99213; G2211

== ENCOUNTER → 2023-12-27 10:51 | Outpatient (BNVA) | payer MEDICARE, MEDICAID, SELFPAY | PROVIDERS: PCP Internal Medicine; Visit Provider Nurse Practitioner Family | DX: R97.20 Elevated prostate specific antigen [PSA] (principal); N40.1 Benign prostatic hyperplasia with lower urinary tract symptoms | CPT/HCPCS: 81003; 99212 ==

== ENCOUNTER 2024-03-29 11:44 | Outpatient (AMB) | payer MEDICARE, MEDICAID, SELFPAY ==
[2024-03-29 11:47] VITALS: BP 132/68; PULSE 72; O2SAT 98; BMI 278.6
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
== END 2024-03-29 12:14 | disposition home or self-care (01) ==
PROVIDERS: PCP Internal Medicine; Visit Provider Internal Medicine
DX: E10.41 Type 1 diabetes mellitus with diabetic mononeuropathy (principal); I10 Essential (primary) hypertension; E78.00 Pure hypercholesterolemia, unspecified; E66.3 Overweight; R97.20 Elevated prostate specific antigen [PSA]; B35.1 Tinea unguium; Z13.9 Encounter for screening, unspecified

== ENCOUNTER → 2024-03-29 11:44 | Outpatient (BNVA) | payer MEDICARE, MEDICAID, SELFPAY | PROVIDERS: PCP Internal Medicine; Visit Provider Internal Medicine | DX: E10.41 Type 1 diabetes mellitus with diabetic mononeuropathy (principal); I10 Essential (primary) hypertension; E78.00 Pure hypercholesterolemia, unspecified; E66.3 Overweight; R97.20 Elevated prostate specific antigen [PSA]; B35.1 Tinea unguium | CPT/HCPCS: 83036; 99212 ==

== ENCOUNTER 2024-03-31 08:46 | Outpatient (REF) | payer MEDICARE, MEDICAID, SELFPAY ==
[2024-03-31 09:34] LABS: MANUAL DIFF FLAG NO
[2024-03-31 10:20] LABS: Basophils Percent Auto 0.5 % (0-2); Eosinophils Absolute Auto 0.1 X10*3/uL (0.0-0.4); Eosinophils Percent Auto 1.2 % (0-4); Hematocrit 43.8 % (42.0-52.0); Hemoglobin 14.6 g/dl (14.0-18.0); Imm Gran Abs Auto 0.01 X10*3/uL (0.00-0.03); Imm Gran Pct Auto 0.2 % (0.0-0.4); Immature Retic Fraction 8.4 % (2.3-13.4); Lymphocytes Absolute Auto 1.6 X10*3/uL (1.2-4.9); Lymphocytes Percent Auto 38.7 % (20-40); Mean Corpuscular HGB Conc 33.3 g/dl (31.0-36.0); Mean Corpuscular Volume 87.1 fL (80.0-98.0); Mean Platelet Volume 9.3 fL (9.4-12.4); Monocytes Absolute Auto 0.3 X10*3/uL (0.1-1.2); Monocytes Percent Auto 8.1 % (2-11); Neutrophils Absolute Auto 2.2 x10*3/uL (2.0-8.3); Neutrophils Percent Auto 51.3 % (45-73); Platelet Count 267 X10*3/uL (160-400); Red Blood Count 5.03 X10*6/uL (4.60-5.80); Retic HGB Equivalent 33.3 pg (30.0-35.0); Reticulocyte Percent 1.5 % (0.5-1.8); Reticulocytes Absolute 0.076 X10*6/uL (0.026-0.095); White Blood Count 4.2 X10*3/uL (4.8-10.8)
[2024-03-31 10:26] LABS: Estimated Average Glucose 128 mg/dL; Hemoglobin A1C 160.8075 umol/L; Hemoglobin A1c % 6.1 % (<6.0); Total Hemoglobin (HGBA1C) 3723.6431 umol/L
[2024-03-31 11:08] LABS: Alanine Aminotransferase 19 U/L (0-40); Albumin Level 4.2 g/dL (3.5-5.0); Alkaline Phosphatase 60 U/L (39-117); Anion Gap 14 (12-20); Aspartate Amino Transferase 22 U/L (5-37); Bilirubin Total 0.6 mg/dL (0.0-1.0); Blood Urea Nitrogen 14 mg/dL (9-16); Calcium 9.4 mg/dL (8.4-10.2); Carbon Dioxide 29 mmol/L (22-29); Chloride 103 mmol/L (96-108); Cholesterol 180 mg/dL (<200); Estimated Glomerular Filt Rate > 60; Ferritin 180 ng/mL (20-250); Free T4 (Free Thyroxine) 1.13 ng/dL (0.71-1.85); Glucose Random 122 mg/dL (60-115); HDL Cholesterol 54 mg/dL (>40); Iron 114 mcg/dL (45-160); LDL Cholesterol Calculated 112 mg/dL (<100); Percent Iron Saturation 41 % (15-50); Potassium 3.9 mmol/L (3.3-5.1); Sodium 142 mmol/L (135-145); Thyroid Stimulating Hormone 1.36 uIU/mL (0.32-4.0); Total Iron Binding Capacity 277 mcg/dL (228-428); Total Protein 6.9 g/dL (6.5-8.0); Triglycerides 71 mg/dL (<150); Unsaturated Iron Binding 163 ug/dL
[2024-03-31 11:17] LABS: Folate 11.1 ng/mL (> or = 4.0); Prostate Specific Antigen Scr 2.97 ng/mL (<0.05-4.0); Vitamin B12 433 pg/mL (200-900)
[2024-03-31 12:03] LABS: Creatinine Urine 203.28 mg/dL; Microalbum/Creatinine Ratio Ur 5.4 ug/mg cr (<30)
== END 2024-03-31 08:47 | disposition home or self-care (01) ==
LOC: HO.LAB 08:46
PROVIDERS: PCP Internal Medicine; Visit Provider Internal Medicine
DX: Z12.5 Encounter for screening for malignant neoplasm of prostate (principal); E11.65 Type 2 diabetes mellitus with hyperglycemia; E78.00 Pure hypercholesterolemia, unspecified
CPT/HCPCS: 36415; 80053; 80061; 82043; 82570; 82607; 82728; 82746; 83036; 83540; 84153; 84439; 84443; 85025; 85045

== ENCOUNTER 2024-05-01 15:58 | Outpatient (REF) | payer MEDICARE, MEDICAID, SELFPAY ==
[2024-05-01 18:04] LABS: Creatinine Urine 142.15 mg/dL
[2024-05-01 18:11] LABS: Prostate Specific Antigen 3.04 ng/mL (<0.05-4.0)
== END 2024-05-01 15:59 | disposition home or self-care (01) ==
LOC: HO.LAB 15:58
PROVIDERS: Absent Provider Internal Medicine; PCP Internal Medicine; Visit Provider Nurse Practitioner Family
DX: N40.1 Benign prostatic hyperplasia with lower urinary tract symptoms (principal); R97.20 Elevated prostate specific antigen [PSA]; E11.65 Type 2 diabetes mellitus with hyperglycemia; E10.9 Type 1 diabetes mellitus without complications; Z12.5 Encounter for screening for malignant neoplasm of prostate
CPT/HCPCS: 36415; 82570; 84153

== ENCOUNTER 2024-05-02 13:09 | Outpatient (AMB) | payer MEDICARE, MEDICAID, SELFPAY ==
--- NOTE | 2024-05-02 13:11 | A.OFFVIS_ITS ---
Intake Visit Reasons: 4m/PSA Intake Note: Patient present today for Follow Up on: elevated psa and psa lab results * PSA: 2.97-04/17 * PSA: 3.04-05/19 Urology Medications: finasteride, cialis Antibiotic Allergy: None Blood Thinner: None Bit Sharpener Operator Required: No Accompanied by: Other Relationship Allergies No Known Allergies Allergy (Verified 05/02/24 13:29) HPI Comments Details: Tomasz is a pleasant 54 year old male patient of Dr. Gastelum who was accompanied by one of the staff members Janet of the nursing home he resides in. He has a past medical history of alcohol syndrome, hypertension, hypercholesteremia, and mental and behavioral problem. He presents to the office today for follow-up of his elevated PSA. Of note, patient underwent prostate biopsy with Dr. Neal September 2022 [facility]. In discussion with the patient today reports to be doing and feeling well. He reports compliance with 5 mg of finasteride daily as well as Cialis. He reports noting urinary urgency and frequency are well controlled with 5 mg of Cialis daily. He currently denies any bothersome urinary issues or concerns. Recent PSA results reviewed with the patient today as noted and trended below. In office urinalysis results reviewed with the patient today. He otherwise denies urinary urgency, urinary frequency, incontinence, nocturia, hematuria, dysuria, foul smelling urine, changes to urinary stream, flank pain, fever, and or chills. He otherwise offers no other issues or concerns at this time. Elevated PSA 07/15- 8.0, 08/15- 9.9, 08/15- 8.6 percent free 12%, 04/16 4.8 percent free 13%, 09/15 2.9, 12/16 3.0, 04/17 3.0, 05/19 3.0 Prostate biopsy - 10/15 [facility] Medical History Screening for prostate cancer Medicare annual wellness visit, initial Colon cancer screening Overweight (BMI 25.0-29.9) alcohol syndrome Hypertension Hypercholesterolemia Mental and behavioral problem Impaired fasting blood sugar Surgical History History of biopsy Hx of colonoscopy History of oral surgery Family History Father No problems noted. Mother No problems noted. Brother Past heart attack Social History Household Members: Other Housing: Assisted Living Facility Housing Other:: Assisted Alcohol intake: never Patient Tobacco Use Status: Never used Tobacco Tobacco use type: Cigarette e-Cigarette/Vaping Use: Never Used Second Hand Smoke Exposure: No service: No Current occupational status: disabled Cognitive needs: No Hearing needs: No Vision needs: Yes (glasses) Review of Systems Const All systems reviewed & are unremarkable except as noted in HPI and below Eyes Reports no additional complaints ENT Reports no additional complaints Card Reports no additional complaints Resp Reports no additional complaints GI Reports no additional complaints Reports as per HPI Musc Reports no additional complaints Neuro Reports no additional complaints Psych Reports as per HPI Endo Reports as per HPI Levi/Lymph Reports no additional complaints Aller/Immun Reports no additional complaints Physical Exam Const General: cooperative, healthy appearing, comfortable, no acute distress, well developed, alert and awake Nutritional Appearance: average body habitus Orientation/consciousness: patient oriented x3 Limitations: no limitations HEENT Head: Yes normal to inspection, Yes normocephalic and Yes atraumatic Ears: hearing grossly normal bilaterally Eyes General: appearance normal, both eyes and all related structures Neck Neck: Yes normal visual inspection and Yes trachea midline Chest Chest palpation & inspection: normal inspection of the chest Resp Effort & Inspection: normal respiratory effort and able to speak in complete sentences Cardio Rate: regular rate GI Inspection: Yes normal to inspection General: Yes no CVA tenderness Back/Spine/Pelvis Back: no CVA tenderness Skin General skin exam: no rashes or lesions noted Neuro General: patient oriented x3 Extrem General: Yes normal to inspection Psych Appearance: grossly normal and well kempt Mental Status: mental status grossly normal Speech and movement: Normal speech and movement present and Clear speech present Affect: normal affect Attitude: cooperative Thought process: Normal thought process present Thought content: Normal thought content present Insight: Fair insight present (Psych) Judgement: Fair judgement present (Psych) Results AMB Urinalysis, Automated UA Leukoctes 0 Boogie/uL Last Edit by [email or web address][email or web address]lenny Francis on 05/02/24 13:33 UA Nitrite Last Edit by [email or web address] on 05/02/24 13:33 UA Urobilinogen 0.2 mg/dL Last Edit by [email or web address] on 05/02/24 13:33 UA Protein 15 mg/dL Last Edit by [email or web address] on 05/02/24 13:33 UA pH 6.5 Last Edit by [employer] on 05/02/24 13:33 UA Blood 0 Bharat/uL Last Edit by [employer] on 05/02/24 13:33 UA Specific [place] 1.020 Last Edit by [employer] on 05/02/24 13:33 UA Ketone Last Edit by [employer] on 05/02/24 13:33 UA Bilirubin 0 mg/dL Last Edit by [employer] on 05/02/24 13:33 UA Glucose 0 mg/dL Last Edit by [employer] on 05/02/24 13:33 Results Reviewed Results Reviewed: Laboratory Last Values Urine pH (Auto) 6.5 05/02/24 13:32 Specific [place] (Auto) 1.020 05/02/24 13:32 Urine Protein (Auto) 15 mg/dL 05/02/24 13:32 Glucose (UA)(Auto) 0 mg/dL 05/02/24 13:32 Urine Blood (Auto) 0 Bharat/uL 05/02/24 13:32 Urine Bilirubin (Auto) 0 mg/dL 05/02/24 13:32 Urine Urobilinogen (Auto) 0.2 mg/dL 05/02/24 13:32 Leukocyte Esterase (Auto) 0 Boogie/uL 05/02/24 13:32 Assessment & Plan Assessment & Plan (1) PSA elevation: Code(s): R97.20 - Elevated prostate specific antigen [PSA] Category: Medical (2) BPH loc w urin obs/LUTS: Code(s): N40.1 - Benign prostatic hyperplasia with lower urinary tract symptoms Category: Medical Plan In office urinalysis results reviewed with the patient today; as noted above. Recent PSA results reviewed with the patient today; as noted above. Continue 5 mg of Cialis and finasteride as prescribed. Patient reports be happy with current voiding parameters. Patient currently denies any bothersome urinary issues or concerns. Will obtain PSA in 4 months. Follow-up in 4 months with lab to be completed prior; or sooner with any issues, concerns, and or questions. Orders: Orders AMB Urinalysis Automated Today Z13.9 - Encounter for screening, unspecified Prostate Specific Antigen 4 Months N40.1 - Benign prostatic hyperplasia with lower urinary tract symptoms, R97.20 - Elevated prostate specific antigen [PSA] Patient Instructions: The patient had an opportunity to ask questions regarding the treatment plan. All questions were answered. Physical exam, labs, and imaging were discussed and reviewed in detail. As well as risks, benefits, and discussion of treatment choices. No major barriers to understanding were identified. The patient expressed understanding and agreement with the above treatment plan. The patient was made aware they should contact our office by phone for worsening of their current condition, the appearance of new symptoms, or with any questions or concerns. Compliance is encouraged with any medications and follow up testing that is ordered. It is a privilege to be allowed the opportunity to participate in? your urological care.? Again, if you have any questions or concerns If you have any questions or concerns please do not hesitate to contact me. The office is [phone]. This note is constructed using voice recognition software. While every effort has been made to ensure accuracy digester cook errors may have been included. Yours sincerely, NAVNEET Sawyer Coding Level of Care Code Est Pt Level 3 (62999) Diagnoses PSA elevation R97.20 BPH loc w urin obs/LUTS N40.1
== END 2024-05-02 13:44 | disposition home or self-care (01) ==
PROVIDERS: PCP Internal Medicine; Visit Provider Nurse Practitioner Family
DX: R97.20 Elevated prostate specific antigen [PSA] (principal); N40.1 Benign prostatic hyperplasia with lower urinary tract symptoms; Z13.9 Encounter for screening, unspecified
CPT/HCPCS: 99213

== ENCOUNTER → 2024-05-02 13:09 | Outpatient (BNVA) | payer MEDICARE, MEDICAID, SELFPAY | PROVIDERS: PCP Internal Medicine; Visit Provider Nurse Practitioner Family | DX: R97.20 Elevated prostate specific antigen [PSA] (principal); N40.1 Benign prostatic hyperplasia with lower urinary tract symptoms; Z79.899 Other long term (current) drug therapy | CPT/HCPCS: 81003; 99212 ==

== ENCOUNTER → 2024-07-18 23:59 | Outpatient (BNV) | payer MEDICARE, MEDICAID, SELFPAY | PROVIDERS: PCP Internal Medicine; Visit Provider Internal Medicine | DX: E10.65 Type 1 diabetes mellitus with hyperglycemia (principal); G31.84 Mild cognitive impairment of uncertain or unknown etiology; I10 Essential (primary) hypertension | CPT/HCPCS: G0179 ==

== ENCOUNTER 2024-08-28 14:00 | Outpatient (REF) | payer MEDICARE, MEDICAID, SELFPAY ==
--- OUTSIDE RECORDS SUMMARY | 2024-08-28 15:20 | XMS_ITS | Clinical Summary ---
Author Organization [address] [facility] Address [address] [place] [address] Phone Care Team Providers Care [employer] Driver Name Role Phone Ben Gastelum MD Primary Care Provider [phone] Allergies No known active allergies Medications clotrimazole (LOTRIMIN) 1 % cream Apply topically 2 (two) times a day. Active finasteride (PROSCAR) 5 mg tablet Take 1 tablet (5 mg total) by mouth 1 (one) time each day. Do not crush, chew, or split. Active hydroCHLOROthia zide (HYDRODIURIL) 25 mg tablet Take 1 tablet (25 mg total) by mouth 1 (one) time each day. Active INSULIN DEGLUDEC SUBQ Inject 100 Units under the skin. Insulin Degludec 100 UNIT/ML Solution Pen-injector Active syringe-needle, insulin,0.5 mL (INSULIN SYRINGE MISC) INSULIN SYRINGE-NEEDLE U-100 Active lisinopriL (PRINIVIL,ZESTR IL) 10 mg tablet Take 1 tablet (10 mg total) by mouth 1 (one) time each day. Active metFORMIN (GLUCOPHAGE) 500 mg tablet Take 1 tablet (500 mg total) by mouth 2 (two) times a day with meals. Active miconazole (MICATIN) 2 % cream Apply topically 2 (two) times a day. Active pravastatin (PRAVACHOL) 40 mg tablet Take 1 tablet (40 mg total) by mouth 1 (one) time each day. Active tadalafiL (CIALIS) 5 mg tablet Take 1 tablet (5 mg total) by mouth 1 (one) time each day if needed for erectile dysfunction. Active terbinafine (LamISIL) 250 mg tablet Take 1 tablet (250 mg total) by mouth 1 (one) time each day. Active Encounters Date Type Department Care Team Description 07/26/2024 2:30 PM EDT Office Visit Orthopedic Surgery [facility] [address] [phone] Bradly Lucas DPM Dermatophytosis of nail (Primary Dx); Ingrowing nail; Diabetic mononeuropathy simplex ([facility] V24, [facility] V28) from Last 3 Months Medical History Medical History Date Comments Type 1 diabetes mellitus ([facility] S/HCC V24, [facility] V28) DX:Type 1 diabetes mellitus (HCC) Impaired fasting blood sugar DX: Impaired fasting blood sugar Mental and behavioral problem DX :Mental and behavioral problem Mixed hyperlipidemia DX:Mixed hy perlipidemia Essential (primary) hypertension DX:Essential (primary) hypertension alcohol syndrome DX: alcohol syndrome Overweight (BMI 25.0-29.9) DX:Ov erweight (BMI 25.0-29.9) Social History Tobacco Use Types Packs/Day Years Used Date Smoking Tobacco: Never Assessed Sex and Gender Information Value Date Recorded Sex Assigned at Not on file Legal Sex Male 11:41 AM EDT Gender Identity Not on file Sexual Orientation Not on file Obstetrics History Last Filed Vital Signs Vital Sign Reading Time Taken Comments Blood Pressure - - Pulse - - Temperature - - Respiratory Rate - - Oxygen Saturation - - Inhaled Oxygen Concentration - - Weight 68.5 kg (151 lb) 07/26/2024 2:52 PM EDT Height 157.5 cm (5' 2.01 ) 07/26/2024 2:52 PM ED T Body Mass Index 27.61 07/26/2024 2:52 PM EDT Plan of Treatment Upcoming Encounters Date Type Department Care Team (Late st Contact Info) Description 10/29/2024 2:45 PM EDT Office Visit Orthopedic Surgery [place] [id number] [phone] Bradly Lucas DPM [address] [id number] Health Maintenance Due Date Last Done Comments Diabetes: Annual GFR (Glomerular Filtration Rate) 1969 Diabetes: Annual Foot Exam 1979 Diabetes: Annual Retina Eye Exam 1979 Hepatitis B Vaccines (1 of 3 - 19+ 3-dose series) 01/19/1988 Zoster Vaccines (1 of 2) 2019 COVID-19 Vaccine ( season) 2023 12/18/2021, 03/20/2021, 05/30/2020, Additional history exists Cholesterol Screening (Lipid Panel) 01/31/2024 Colorectal Cancer Screening: Colonoscopy 01/31/2024 Depression Screening 01/31/2024 HIV Screening 01/31/2024 Hepatitis C Screening 01/31/2024 Medicare Annual Wellness Visit 01/31/2024 Social Influencers of Health Screening 01/31/2024 Diabetes: Annual Urine Albumin-Creatinine Ratio (uACR) 03/12/2024 Diabetes: Blood Sugar Control Test (HGBA1C) 03/12/2024 Hypertension/CHF/CAD Annual BMP Blood Test 03/12/2024 DTaP,Tdap,and Td Vaccines (2 - Td or Tdap) 11/09/2032 11/09/2022 Pneumococcal Vaccine: 50+ Years Completed 07/05/2022 Pneumococcal Vaccine: Pediatrics (0 to 5 Years) and At-Risk Patients (6 to 64 Years) Completed 07/05/2022 Influenza Vaccine Completed 01/24/2024, , 03/05/2022, Additional history exists HIB Vaccines Aged Out No longer eligi ble based on patient's age to complete this topic HPV Vaccines Aged Out No longer eligi ble based on patient's age to complete this topic Hepatitis A Vaccines Aged Out No long er eligible based on patient's age to complete this topic IPV Vaccines Aged Out No longer eligi ble based on patient's age to complete this topic MMR Vaccines Aged Out No longer eligi ble based on patient's age to complete this topic Meningococcal ACWY Vaccine Aged Out N o longer eligible based on patient's age to complete this topic Meningococcal B Vaccine Aged Out No l onger eligible based on patient's age to complete this topic RSV Immunization Patients Under 20 months Aged Out No longer eligible based on patient's age to complete this topic Varicella Vaccines Aged Out No longer eligible based on patient's age to complete this topic Insurance MEDICA[place] - [place] MEDICARE Care Teams [employer] Driver Relationship Specialty Start Date End Date Ben Gastelum MD [address] [place] [address] Dr M[address] [facility] [place] [address] PCP - General 11/25/23
[2024-08-28 16:01] LABS: Prostate Specific Antigen 2.97 ng/mL (<0.05-4.0)
== END 2024-08-28 14:01 | disposition home or self-care (01) ==
LOC: HO.LAB 14:00
PROVIDERS: PCP Internal Medicine; Visit Provider Nurse Practitioner Family
DX: N40.1 Benign prostatic hyperplasia with lower urinary tract symptoms (principal); R97.20 Elevated prostate specific antigen [PSA]; Z12.5 Encounter for screening for malignant neoplasm of prostate
CPT/HCPCS: 36415; 84153

== ENCOUNTER 2024-08-29 13:00 | Outpatient (AMB) | payer MEDICARE, MEDICAID, SELFPAY ==
--- NOTE | 2024-08-29 13:07 | MHC.OFFVIS ---
Intake Visit Reasons: 4 month/PSA/PVR Intake Note: Patient present today for Follow Up on: elevated psa and psa lab results PSA: 2.97 Urology Medications: finasteride, cialis Antibiotic Allergy: None Blood Thinner: None Natural History Collections Curator Required: No Accompanied by: Other Relationship Allergies No Known Allergies Allergy (Verified 08/29/24 13:10) HPI Comments Details: Tomasz is a pleasant 54 year old male patient of Dr. Gastelum who was accompanied by his manager of program at today's office visit. He has a past medical history of alcohol syndrome, hypertension, hypercholesteremia, and mental and behavioral problem. He presents to the office today for follow-up of his elevated PSA. Of note, patient underwent prostate biopsy with Dr. Neal September 2022 [facility]. In discussion with the patient today reports to be doing and feeling well. He reports compliance with 5 mg of finasteride daily as well as Cialis. He reports noting urinary urgency and frequency are well controlled with 5 mg of Cialis daily. He currently denies any bothersome urinary issues or concerns. Recent PSA results reviewed with the patient today as noted and trended below. In office urinalysis results reviewed with the patient today. PVR 0 mL He otherwise denies urinary urgency, urinary frequency, incontinence, nocturia, hematuria, dysuria, foul smelling urine, changes to urinary stream, flank pain, fever, and or chills. He otherwise offers no other issues or concerns at this time. Elevated PSA 07/15- 8.0, 08/15- 9.9, 08/15- 8.6 percent free 12%, 04/16 4.8 percent free 13%, 09/15 2.9, 12/16 3.0, 04/17 3.0, 05/19 3.0, 09/16 3.0 Prostate biopsy - 10/15 [facility] Medical History Screening for prostate cancer Medicare annual wellness visit, initial Colon cancer screening Overweight (BMI 25.0-29.9) alcohol syndrome Hypertension Hypercholesterolemia Mental and behavioral problem Impaired fasting blood sugar Surgical History History of biopsy Hx of colonoscopy History of oral surgery Family History Father No problems noted. Mother No problems noted. Brother Past heart attack Social History Household Members: Other Housing: Assisted Living Facility Housing Other:: Long-Term Alcohol intake: never Patient Tobacco Use Status: Never used Tobacco Tobacco use type: Cigarette e-Cigarette/Vaping Use: Never Used Second Hand Smoke Exposure: No service: No Current occupational status: disabled Cognitive needs: No Hearing needs: No Vision needs: Yes (glasses) Review of Systems Const All systems reviewed & are unremarkable except as noted in HPI and below Eyes Reports no additional complaints ENT Reports no additional complaints Card Reports no additional complaints Resp Reports no additional complaints GI Reports no additional complaints Reports as per HPI Musc Reports no additional complaints Neuro Reports no additional complaints Psych Reports as per HPI Endo Reports as per HPI Levi/Lymph Reports no additional complaints Aller/Immun Reports no additional complaints Physical Exam Const General: cooperative, healthy appearing, comfortable, no acute distress, well developed, alert and awake Nutritional Appearance: average body habitus Orientation/consciousness: patient oriented x3 Limitations: no limitations HEENT Head: Yes normal to inspection, Yes normocephalic and Yes atraumatic Ears: hearing grossly normal bilaterally Eyes General: appearance normal, both eyes and all related structures Neck Neck: Yes normal visual inspection and Yes trachea midline Chest Chest palpation & inspection: normal inspection of the chest Resp Effort & Inspection: normal respiratory effort and able to speak in complete sentences Cardio Rate: regular rate GI Inspection: Yes normal to inspection General: Yes no CVA tenderness Back/Spine/Pelvis Back: no CVA tenderness Skin General skin exam: no rashes or lesions noted Neuro General: patient oriented x3 Extrem General: Yes normal to inspection Psych Appearance: grossly normal and well kempt Mental Status: mental status grossly normal Speech and movement: Normal speech and movement present and Clear speech present Affect: normal affect Attitude: cooperative Thought process: Normal thought process present Thought content: Normal thought content present Insight: Fair insight present (Psych) Judgement: Fair judgement present (Psych) Office Procedures Post Void Residual Post Residual Void Post Void Residual (PVR): 0 [id number] Void Residual by ultrasound Results AMB Urinalysis, Automated UA Leukoctes 0 Boogie/uL Last Edit by Andrés Francis on 08/29/24 13:34 UA Nitrite Last Edit by Andrés Francis on 08/29/24 13:34 UA Urobilinogen 0.2 mg/dL Last Edit by Andrés Francis on 08/29/24 13:34 UA Protein 0 mg/dL Last Edit by Anrdés Francis on 08/29/24 13:34 UA pH 6.5 Last Edit by Andrés Francis on 08/29/24 13:34 UA Blood 0 Bharat/uL Last Edit by Andrés Francis on 08/29/24 13:34 UA Specific [place] 1.020 Last Edit by Andrés Francis on 08/29/24 13:34 UA Ketone Last Edit by Andrés Francis on 08/29/24 13:34 UA Bilirubin 0 mg/dL Last Edit by Andrés Francis on 08/29/24 13:34 UA Glucose 0 mg/dL Last Edit by Andrés Francis on 08/29/24 13:34 Results Reviewed Results Reviewed: Laboratory Last Values Urine pH (Auto) 6.5 08/29/24 13:10 Specific [place] (Auto) 1.020 08/29/24 13:10 Urine Protein (Auto) 0 mg/dL 08/29/24 13:10 Glucose (UA)(Auto) 0 mg/dL 08/29/24 13:10 Urine Blood (Auto) 0 Bharat/uL 08/29/24 13:10 Urine Bilirubin (Auto) 0 mg/dL 08/29/24 13:10 Urine Urobilinogen (Auto) 0.2 mg/dL 08/29/24 13:10 Leukocyte Esterase (Auto) 0 Boogie/uL 08/29/24 13:10 Assessment & Plan Assessment & Plan (1) PSA elevation: Code(s): R97.20 - Elevated prostate specific antigen [PSA] Category: Medical (2) BPH loc w urin obs/LUTS: Code(s): N40.1 - Benign prostatic hyperplasia with lower urinary tract symptoms Category: Medical Plan In office urinalysis results reviewed with the patient today; as noted above. PVR 0 mL Recent PSA results reviewed with the patient today; as noted above. Continue 5 mg of Cialis and finasteride as prescribed. Patient reports be happy with current voiding parameters. Patient currently denies any bothersome urinary issues or concerns. Will obtain PSA in 4 months. Follow-up in 4 months with lab to be completed prior; or sooner with any issues, concerns, and or questions. Orders: Orders AMB Urinalysis Automated Today Z13.9 - Encounter for screening, unspecified Prostate Specific Antigen 4 Months N40.1 - Benign prostatic hyperplasia with lower urinary tract symptoms, R97.20 - Elevated prostate specific antigen [PSA] AMB Post Void Residual by ultrasound Today N40.1 - Benign prostatic hyperplasia with lower urinary tract symptoms Patient Instructions: The patient had an opportunity to ask questions regarding the treatment plan. All questions were answered. Physical exam, labs, and imaging were discussed and reviewed in detail. As well as risks, benefits, and discussion of treatment choices. No major barriers to understanding were identified. The patient expressed understanding and agreement with the above treatment plan. The patient was made aware they should contact our office by phone for worsening of their current condition, the appearance of new symptoms, or with any questions or concerns. Compliance is encouraged with any medications and follow up testing that is ordered. It is a privilege to be allowed the opportunity to participate in? your urological care.? Again, if you have any questions or concerns If you have any questions or concerns please do not hesitate to contact me. The office is [phone]. This note is constructed using voice recognition software. While every effort has been made to ensure accuracy auto body builder apprentice errors may have been included. Yours sincerely, NAVNEET Sawyer Coding Level of Care Code Est Pt Level 3 (19162) Diagnoses PSA elevation R97.20 BPH loc w urin obs/LUTS N40.1 CPT Codes Post Residual Void - PVR CPT Code: 17406-[id number] Void Residual by ultrasound ([id number])
--- OUTSIDE RECORDS SUMMARY | 2024-08-29 14:14 | XMS_ITS | Clinical Summary ---
Author Organization [address] [facility] Address [address] [place] [address] Phone Care Team Providers Care Marketing Director Name Role Phone Ben Gastelum MD Primary Care Provider [phone] Allergies No known active allergies Medications clotrimazole [...] 2:30 PM EDT Office Visit Orthopedic Surgery [facility] [address] [phone] Bradly Lucas DPM Dermatophytosis of nail (Primary Dx); Ingrowing nail; Diabetic mononeuropathy simplex ([facility] V24, [facility] V28) from Last 3 Months Medical History Medical History Date Comments Type 1 diabetes mellitus (CM S/HCC V24, [facility] V28) DX:Type 1 diabetes mellitus (HCC) Impaired [...] 2:45 PM EDT Office Visit Orthopedic Surgery [place] [id number] [phone] Bradly Lucas DPM [address] [phone] Health Maintenance Due Date Last Done Comments [...] Insurance MEDICAID - [place] MEDICARE Care Teams Marketing Director Relationship Specialty Start Date End Date Ben Gastelum MD [address] [place] [address] Dr M[address]an[address] [facility] [place] [address] PCP - General 11/25/23
== END 2024-08-29 13:55 | disposition home or self-care (01) ==
LOC: HO.HUSH 13:01
PROVIDERS: PCP Internal Medicine; Visit Provider Nurse Practitioner Family
DX: R97.20 Elevated prostate specific antigen [PSA] (principal); N40.1 Benign prostatic hyperplasia with lower urinary tract symptoms; Z13.9 Encounter for screening, unspecified
CPT/HCPCS: 99213

== ENCOUNTER → 2024-08-29 13:00 | Outpatient (BNVA) | payer MEDICARE, MEDICAID, SELFPAY | PROVIDERS: PCP Internal Medicine; Visit Provider Nurse Practitioner Family | DX: R97.20 Elevated prostate specific antigen [PSA] (principal); N40.1 Benign prostatic hyperplasia with lower urinary tract symptoms | CPT/HCPCS: 51798; 81003; 99212 ==

== ENCOUNTER 2024-09-27 10:53 | Outpatient (AMB) | payer MEDICARE, MEDICAID, SELFPAY ==
[2024-09-27 10:55] VITALS: BP 110/80; PULSE 74; O2SAT 97; BMI 27.2
--- NOTE | 2024-09-27 10:55 | AM.OFFVISMDC ---
Intake Vital Signs 09/27/24 10:55 Height 5 ft 2.5 in Weight 151 lb 6 oz BMI 27.2 BP 110/80 Blood Pressure Location Lt brachial Position Sitting Pulse 74 Pulse Source Pulse Oximeter Pulse Oximetry (%) 97 Oxygen Delivery Method Room Air Intake Visit Reasons: AWV Rnp Required: No Accompanied by: Self / Same As Patient Allergies No Known Allergies Allergy (Verified 09/27/24 10:56) Medication List - Last Reconciled 09/27/24 by Ben Gastelum MD blood sugar diagnostic (FreeStyle Lite Strips) As directed blood-glucose meter (FreeStyle Lite Meter kit) As directed carboxymethylcellulose sodium 0.5% (Refresh Tears) 1 drp ophthalmic (eye) BID cholecalciferol (vitamin D3) 50 mcg PO QAM compress.stocking,knee,reg,med As directed 20-30 mm HG finasteride 5 mg PO DAILY 90 days hydrochlorothiazide 25 mg PO DAILY insulin degludec (Tresiba FlexTouch U-100 insulin) 5 units (0.05 mL) subcut DAILY insulin syringe-needle U-100 As directed lancets (FreeStyle Lancets) As directed lisinopril 10 mg PO DAILY metformin 500 mg PO BIDWMEAL miconazole nitrate 2% (Zeasorb AF) 1 appl topical BID potassium chloride ER (Klor-Con M) 20 mEq PO DAILY pravastatin 40 mg PO DAILY 30 days tadalafil 5 mg PO DAILY 90 days Do you need a note to return to daycare/school/sports/work: No HPI AWV HPI Details Freedom of care urology [facility] Urology Orthopedics [facility] orthopedic [facility]hthal[facility] [place] [facility] podiatry placement specialist associates gastro[facility] Medical History Screening for prostate cancer Medicare annual wellness visit, initial Colon cancer screening Overweight (BMI 25.0-29.9) alcohol syndrome Hypertension Hypercholesterolemia Mental and behavioral problem Impaired fasting blood sugar Surgical History History of biopsy Hx of colonoscopy History of oral surgery Family History Father No problems noted. Mother No problems noted. Brother Past heart attack Social History Household Members: Other Housing: Assisted Living Facility Housing Other:: [facility] Alcohol intake: never Patient Tobacco Use Status: Never used Tobacco Tobacco use type: Cigarette e-Cigarette/Vaping Use: Never Used Second Hand Smoke Exposure: No service: No Current occupational status: disabled Cognitive needs: No Hearing needs: No Vision needs: Yes (glasses) Questionnaire Medicare Wellness Checkup What [age] your [age]?: 65-69 (54) What gender do you identify with?: male During the past 4 weeks, how much have you been bothered by emotional problems such as feeling anxious, depressed, irritable, sad or downhearted, and blue?: slightly During the past 4 weeks, has your physical & emotional health limited your social activities with family, friends, neighbors, or groups?: not at all During the past 4 weeks, how much bodily pain have you generally had?: no pain During the past 4 weeks, was someone available to help you if you needed & wanted help?: yes, as much as I wanted During the past 4 weeks, what was the hardest physical activity you could do for at least 2 minutes?: moderate Can you get to places out of walking distance without help? (For eg., can you travel alone on buses, taxis or drive your car?): No Can you go shopping for groceries or clothes without someone's help?: No Can you prepare your own meals?: Yes Can you do your housework without help?: Yes Because of any health problems, do you need the help of another person with your personal care needs such as eating, bathing, dressing or getting around the house?: No Can you handle your own money without help?: No During the past 4 weeks, how would you rate your health in general?: excellent During the past 4 weeks how have things been going for you?: very well; could hardly better Are you having difficulties driving your car?: not applicable, I don't use a car Do you always fasten your seat belt when you are in a car?: yes, usually During past 4 weeks, have you been bothered by the following: never: Falling or dizzy when standing up, Sexual problems?, Trouble eating well?, Teeth or denture problems?, Problems using the telephone? and Tiredness or fatigue? Have you fallen 2 or more times in the past year?: No Are you afraid of falling?: No Are you a smoker?: no During the past 4 weeks, how many drinks of wine, beer, or other alcoholic beverages did you have?: no alcohol at all Do you exercise for about 20 minutes 3 or more times a week?: yes, most of the time Have you been given information to help with the following?: yes: Hazards in your house that might hurt you? and yes: Keeping track of your medications? How often do you have trouble taking medicines the way you have been told to take them?: I always take medicine as prescribed How confident are you that you can control & manage most of your health problems?: very confident What is your race?: Black or PHQ-9 Over the last 2 weeks, how often have you been bothered by any of the following problems? 1. Little interest or pleasure in doing things: not at all 2. Feeling down, depressed, or hopeless: not at all 3. Trouble falling or staying asleep, or sleeping too much: not at all 4. Feeling tired or having little energy: not at all 5. Poor appetite or overeating: not at all 6. Feeling bad about yourself - or that you are a failure or have let yourself or your family down: not at all 7. Trouble concentrating on things, such as reading the newspaper or watching television: not at all 8. Moving or speaking so slowly that other people could have noticed. Or the opposite - being so fidgety or restless that you have been moving around a lot more than usual: not at all 9. Thoughts that you would be better off or of hurting yourself in some way: not at all Total score: 0 Depression Screening Interpretation: Negative Depression Screening Done: Yes Source: Developed by Drs. Michael Clayton, Sanjana Mcclure, George Jaquez and colleagues, with an educational jose f from [employer]. PHQ-2/PHQ-9 PHQ-2 Over the last 2 weeks, how often have you been bothered by any of the following problems? 1. Little interest or pleasure in doing things: not at all 2. Feeling down, depressed, or hopeless: not at all Total score: 0 If score is 3 or greater, continue 3. Trouble falling or staying asleep, or sleeping too much: not at all 4. Feeling tired or having little energy: not at all 5. Poor appetite or overeating: not at all 6. Feeling bad about yourself - or that you are a failure or have let yourself or your family down: not at all 7. Trouble concentrating on things, such as reading the newspaper or watching television: not at all 8. Moving or speaking so slowly that other people could have noticed. Or the opposite - being so fidgety or restless that you have been moving around a lot more than usual: not at all 9. Thoughts that you would be better off or of hurting yourself in some way: not at all Total score: 0 0-4 None-Minimal, 5-9 Mild, 10-14 Moderate, 15-19 Moderately Severe, 20-27 Severe Source: Developed by Drs. Michael Clayton, Sanjana Mcclure, George Jaquez and colleagues, with an educational jose f from [employer]. Thrive Questionnaire Date Thrive assessed: 09/27/24 I am a: Patient What is your living situation today?: I have a steady place to live Within the past 12 months, did the food you bought not last and you didn't have the money to get more?: Never true Within the past 12 months, did you worry whether your food would run out before you got money to buy more?: Never true Do you have trouble paying for medicines?: No Do you have trouble getting transportation to medical appointments?: No Do you have trouble paying your heating and electricity bill?: No Do you have trouble taking care of your child, family member or friend?: No Do you have trouble with day-to-day activities such as bathing, preparing meals, shopping, managing finances, etc.?: No Are you currently unemployed and looking for a job?: No Are you interested in more education?: No Please select the resources that you would like help with: None Currently or been in a relationship where the following occur: No concerns reported THRIVE Score: 0 ANAI-7 AMB Questionnaire ANAI-7 Date ANAI - 7 assessed: 09/27/24 Feeling nervous, anxious, or on edge: 0 = Not at all Not being able to stop or control worryin = Not at all Worrying too much about different things: 0 = Not at all Trouble relaxin = Not at all Being so restless that it is hard to sit still: 0 = Not at all Becoming easily annoyed or irritable: 0 = Not at all Feeling afraid as if something awful might happen: 0 = Not at all Total ANAI-7 score (0-4 normal; 5-9 mild; 10-14 moderate; 15-21 severe): 0 Source: Developed by Drs. Michael Clayton, Sanjana Mcclure, George Jaquez and colleagues, with an educational jose f from [employer]. Review of Systems Const Denies poor appetite and Denies weakness Eyes Denies no additional complaints ENT Reports Normal hearing present, Denies dizziness, Denies nasal congestion, Denies tinnitus and Denies sore throat Card Denies chest pain, Denies syncope, Denies rapid heart rate and Denies dyspnea Resp Denies cough and Denies dyspnea GI Denies change in stool character, Reports constipation, Denies diarrhea, Denies nausea and Denies vomiting Denies dysuria and Denies urinary frequency Neuro Reports Normal hearing present, Denies confusion, Denies dizziness, Denies syncope and Denies weakness Psych Denies confusion Physical Exam Vital Signs: Last Vital Signs Pulse 74 09/27/24 10:55 BP 110/80 09/27/24 10:55 Pulse Ox 97 09/27/24 10:55 Oxygen Delivery Method Room Air 09/27/24 10:55 BMI result Body Mass Index 27.2 Const General: No confusion Orientation/consciousness: No confusion HEENT Head: Yes normocephalic Ears: external ears normal and TM's normal bilaterally Face and sinus: Yes normal facial exam Mouth: moist mucous membranes Throat: Yes tonsils normal Eyes Conjunctivae: conjunctivae normal Pupils: Equal, round and reactive pupils present and Pupil accommodation reflex normal Direct Ophthalmoscopy: normal light reflex Neck Neck: No lymphadenopathy Thyroid: Thyroid normal Chest Chest palpation & inspection: normal inspection of the chest Resp Effort & Inspection: normal respiratory effort and no audible wheezes Auscultation: clear to auscultation bilaterally, no crackles, no wheezes and lung sounds not diminished Cardio Rate: regular rate Rhythm: regular rhythm Peripheral pulses: radial pulses present and dorsalis pedis present GI Other: guaiac stools negative prostate N pedal pulse and pin prick N Palpation (GI): no masses Auscultation: normal bowel sounds and normoactive bowel sounds Male General Exam: Yes normal external exam Skin General skin exam: no rashes or lesions noted Rashes: no rashes Neuro General: No confusion Cranial nerves: Yes Equal, round and reactive pupils present and Yes Normal hearing present Cognition (Neuro): normal cognition Gait exam (Neuro): Normal gait present Motor exam (neuro): 5/5 motor strength present throughout Deep tendon reflexes (DTR's): Right brachioradialis reflex intensity grade: 2+, Left brachioradialis reflex intensity grade: 2+, Right patellar reflex intensity grade: 2+ and Left patellar reflex intensity grade: 2+ Extrem General: No edema Assessment & Plan Assessment & Plan (1) Annual wellness visit: Code(s): Z00.00 - Encounter for general adult medical examination without abnormal findings Plan: Patient is advised to eat healthy, keep well hydrated, keep active and have adequate sleep. (2) Diabetes type 1, controlled: Comment: [facility] 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 Hemoglobin A1c goal of less than 6.5. Patient on Tresiba 5 units once a day metformin 500 mg twice a day (3) Overweight (BMI 25.0-29.9): Comment: Diet and exercise Code(s): E66.3 - Overweight Plan: Diet and exercise (4) Hypertension: Comment: Continue with blood pressure medication. Decrease salt intake and exercise Code(s): I10 - Essential (primary) hypertension Qualifiers: Hypertension type: essential hypertension Qualified Code(s): I10 - Essential (primary) hypertension Plan: Continue with blood pressure medication. Decrease salt intake and exercise on lisinopril 10 mg once a day and hydrochlorothiazide (5) Hypercholesterolemia: Code(s): E78.00 - Pure hypercholesterolemia, unspecified Plan: Avoid fried foods, chicken skin, eggs, butter margarine, pastries and meat. 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 He has a recorded history of essential hypertension, hypercholesterolemia, diabetes mellitus, and benign prostatic hyperplasia. The last examination was conducted in March 2024, including a colonoscopy in 2019 indicating that he is current with preventive screenings. He maintains routine urology monitoring, with stable PSA levels measured at 2.97. Blood work from March 31, 2024, showed mild leukopenia with otherwise normal results, including hemoglobin A1c at 6.1% and LDL cholesterol requiring a reassessment due to it being slightly above the target. His current management for diabetes includes Tresiba and metformin, with blood pressure effectively managed through lisinopril. He continues on pravastatin for cholesterol management with the goal of achieving lower LDL levels. Health Maintenance - Routine colonoscopy conducted in 2019; up to date. - Current PSA monitoring by urology with stable results observed. - Blood work done on March 31, 2024, with mild leukopenia noted, but otherwise normal. - Previous cholesterol testing with LDL at 112; retesting advised. - Up-to-date on tetanus and pneumonia vaccinations. - Discussion of shingles vaccine available at the pharmacy. - Diabetes management with Tresiba and metformin targeting a hemoglobin A1c of less than 6.5%. - Blood pressure management with lisinopril, targeting controlled levels. - Cholesterol management on pravastatin aiming for LDL below 100 and triglycerides below 150. Social History Review of Systems - Constitutional: Denies fever or recent falls. - HEENT: Denies vision problems when at [facility]; denies difficulty swallowing. Reports red eyes, attributed to fatigue or possible allergies. - Cardiovascular: Denies chest pain, heartburn. - Respiratory: Denies shortness of breath. - Gastrointestinal: Denies issues with bowel movements, reports waking up twice to thrice for nocturia. - Musculoskeletal: Denies dizziness, nausea, vomiting. - Genitourinary: Denies any new problems, under urology surveillance. - Neurological: Denies passing out; denies hearing issues. - Dermatological: No discussion of issues. - Endocrine: Reports diabetes, under control. - Lymphatic: No discussion of issues. - Psychological: History of mental and behavioral issues noted. Physical Exam General: Cooperative, healthy appearing, comfortable, no acute distress and well developed Orientation: Patient oriented x3 Limitations: No limitations Head: Normal to inspection Ears: Hearing grossly normal bilaterally Nose: Normal external nose present Face and sinus: Normal facial exam Eyes: Redness noted, possibly due to tiredness or allergies Neck: Normal visual inspection and Yes full ROM Respiratory: Normal respiratory effort and able to speak in complete sentences. Clear to auscultation bilaterally Cardiovascular: Regular rate and rhythm. Normal S1 and S2 GI: Normal to inspection. Soft to palpation and nontender Skin: No rashes or lesions noted Neuro: Patient oriented x3 Extremities: Normal to inspection Results - Labs: March 31, 2024 - Blood count normal, mild leukopenia. - LDL cholesterol at 112, target below 100. - PSA stable at 2.97, normal thyroid function, no proteinuria. Plan 1. Diabetes is managed with a hemoglobin A1c goal of less than 6.5%, using Tresiba and metformin. Blood pressure management with lisinopril is continued, and pravastatin is used for cholesterol management. Ongoing urology follow-up under surveillance for benign prostatic hyperplasia is in place. The patient's current lifestyle and specialized follow-ups continue to be advised. Vaccinations are current, and the shingles vaccine is discussed for optional administration. Emphasis is made on the importance of fasting for the recommended blood work. Follow-up is scheduled to monitor progress and make potential adjustments to the management plan.: Patient was informed and verbally consented to the use of an ambient scribe for clinic note documentation during this visit. Discussion Notes I discussed with the patient the necessity of repeating his cholesterol testing due to an LDL result of 112, aiming for an LDL level below 100. We also reviewed his diabetes and blood pressure management plans, with current regimens maintaining good control. The ongoing use of pravastatin for cholesterol, along with lisinopril for hypertension, was reinforced. Emphasis was placed on the importance of lifestyle modifications, including diet and exercise, to manage diabetes and cholesterol levels. The patient was informed about the stability of his PSA results and continued surveillance of benign prostatic hyperplasia. Vaccination status was reviewed, with a suggestion for a shingles vaccine as a precautionary measure. We discussed ensuring that a healthcare proxy is documented. Follow-up arrangements were confirmed for three months to reassess his health metrics and ensure continuity of care. Patient Instructions - Arrange for blood work in the next few months after fasting for eight hours. - Monitor and maintain a healthy diet and regular exercise. - Take prescribed medications and inform the office if any side effects occur. - Schedule follow-ups and maintain communication with specialist care providers. - Stay updated on vaccinations, consider getting the shingles vaccine from the pharmacy. - Ensure a healthcare proxy form is accessible and submitted for emergency decision-making. 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
--- OUTSIDE RECORDS SUMMARY | 2024-09-27 12:50 | XMS_ITS | Clinical Summary ---
Author Organization [address] [facility] Address [address] [place] [address] Phone Care Team Providers Care Seam Press Operator Name Role Phone Ben Gastelum MD Primary Care Provider [phone] Allergies No known active allergies Medications clotrimazole [...] Orthopedic Surgery [facility] [address] [phone] Bradly Lucas DPM Dermatophytosis of nail (Primary Dx); Ingrowing nail; Diabetic mononeuropathy simplex ([facility] V24, [facility] V28) from Last [...] 2:45 PM EDT Office Visit Orthopedic Surgery [place] [id number] [phone] Bradly Lucas DPM [address] [id number] Health Maintenance Due Date Last Done Comments [...] Insurance MEDICAID - [place] MEDICARE Care Teams Seam Press Operator Relationship Specialty Start Date End Date Ben Gasteulm MD [address] [place] [address] Dr Mcdaniels [address] [facility] [place] [address] PCP - General 11/25/23
== END 2024-09-27 11:53 | disposition home or self-care (01) ==
LOC: HO.HMCH 10:53
PROVIDERS: PCP Internal Medicine; Visit Provider Internal Medicine
DX: Z00.00 Encounter for general adult medical examination without abnormal findings (principal); E10.41 Type 1 diabetes mellitus with diabetic mononeuropathy; E66.3 Overweight; Z68.27 Body mass index [BMI] 27.0-27.9, adult; I10 Essential (primary) hypertension; E78.00 Pure hypercholesterolemia, unspecified; F48.9 Nonpsychotic mental disorder, unspecified; F69 Unspecified disorder of adult personality and behavior; N40.1 Benign prostatic hyperplasia with lower urinary tract symptoms

== ENCOUNTER → 2024-09-27 10:53 | Outpatient (BNVA) | payer MEDICARE, MEDICAID, SELFPAY | PROVIDERS: PCP Internal Medicine; Visit Provider Internal Medicine ==

== ENCOUNTER 2024-09-29 09:32 | Outpatient (REF) | payer MEDICARE, MEDICAID, SELFPAY ==
[2024-09-29 09:42] LABS: MANUAL DIFF FLAG NO
[2024-09-29 10:27] LABS: Basophils Percent Auto 0.5 % (0-2); Eosinophils Absolute Auto 0.1 X10*3/uL (0.0-0.4); Eosinophils Percent Auto 1.4 % (0-4); Hematocrit 42.4 % (42.0-52.0); Imm Gran Abs Auto 0.01 X10*3/uL (0.00-0.03); Imm Gran Pct Auto 0.2 % (0.0-0.4); Lymphocytes Absolute Auto 1.5 X10*3/uL (1.2-4.9); Lymphocytes Percent Auto 34.1 % (20-40); Mean Corpuscular Hemoglobin 28.6 pg (27.0-33.0); Mean Corpuscular Volume 86.7 fL (80.0-98.0); Mean Platelet Volume 8.8 fL (9.4-12.4); Monocytes Absolute Auto 0.4 X10*3/uL (0.1-1.2); Monocytes Percent Auto 8.8 % (2-11); Neutrophils Absolute Auto 2.4 x10*3/uL (2.0-8.3); Platelet Count 247 X10*3/uL (160-400); Red Blood Count 4.89 X10*6/uL (4.60-5.80); Red Cell Distribution Width 12.9 % (11.0-16.0); White Blood Count 4.3 X10*3/uL (4.8-10.8)
[2024-09-29 10:41] LABS: Estimated Average Glucose 128 mg/dL; Hemoglobin A1C 161.6102 umol/L; Hemoglobin A1c % 6.1 % (<6.0); Total Hemoglobin (HGBA1C) 3703.6695 umol/L
[2024-09-29 10:45] LABS: Creatinine Urine 123.04 mg/dL; Microalbum/Creatinine Ratio Ur 5.6 ug/mg cr (<30)
[2024-09-29 10:56] LABS: Alanine Aminotransferase 24 U/L (0-40); Albumin Level 4.1 g/dL (3.5-5.0); Alkaline Phosphatase 62 U/L (39-117); Anion Gap 8 (12-20); Aspartate Amino Transferase 20 U/L (5-37); Bilirubin Total 0.5 mg/dL (0.0-1.0); Blood Urea Nitrogen 15 mg/dL (9-16); Calcium 9.5 mg/dL (8.4-10.2); Carbon Dioxide 33 mmol/L (22-29); Chloride 104 mmol/L (96-108); Cholesterol 175 mg/dL (<200); Estimated Glomerular Filt Rate > 60; Glucose Random 102 mg/dL (60-115); HDL Cholesterol 52 mg/dL (>40); LDL Cholesterol Calculated 111 mg/dL (<100); Potassium 3.9 mmol/L (3.3-5.1); Sodium 141 mmol/L (135-145); Total Protein 6.5 g/dL (6.5-8.0); Triglycerides 60 mg/dL (<150)
[2024-09-29 11:13] LABS: Free T4 (Free Thyroxine) 1.15 ng/dL (0.71-1.85); Thyroid Stimulating Hormone 1.46 uIU/mL (0.32-4.0)
[2024-09-29 11:20] LABS: Folate 12.3 ng/mL (> or = 4.0); Vitamin B12 346 pg/mL (200-900)
== END 2024-09-29 09:33 | disposition home or self-care (01) ==
LOC: HO.LAB 09:32
PROVIDERS: PCP Internal Medicine; Visit Provider Internal Medicine
DX: E11.65 Type 2 diabetes mellitus with hyperglycemia (principal); E78.00 Pure hypercholesterolemia, unspecified; E11.40 Type 2 diabetes mellitus with diabetic neuropathy, unspecified
CPT/HCPCS: 36415; 80053; 80061; 82043; 82570; 82607; 82746; 83036; 84439; 84443; 85025

== ENCOUNTER → 2024-12-10 23:59 | Outpatient (BNV) | payer MEDICARE, MEDICAID, SELFPAY | PROVIDERS: PCP Internal Medicine; Visit Provider Internal Medicine | DX: E10.65 Type 1 diabetes mellitus with hyperglycemia (principal); G31.84 Mild cognitive impairment of uncertain or unknown etiology; I10 Essential (primary) hypertension; N17.9 Acute kidney failure, unspecified | CPT/HCPCS: G0179 ==

== ENCOUNTER 2024-12-29 07:35 | Outpatient (REF) | payer MEDICARE, MEDICAID, SELFPAY ==
--- OUTSIDE RECORDS SUMMARY | 2024-12-29 07:40 | XMS_ITS | Clinical Summary ---
Author Organization 175 [facility] Address 175 [place] [address] Phone Care Team Providers Care Veneer Gluer Name Role Phone Ben Gastelum MD Primary Care Provider [phone] Allergies No known active allergies Medications clotrimazole [...] mouth 1 (one) time each day. Active ammonium lactate (AmLactin) 12 % lotion Apply topically if needed for dry skin. 1200 g 5 10/30/19 26 Active ketoconazole (NIZORAL) 2 % cream Apply topically 1 (one) time each day. 30 g 2 Active Encounters Date Type Department Care Team Description 11/08/2024 Telephone Orthopedic Surgery [facility] [address] [phone] Bradly Lucas DPM 10/29/2024 2:45 PM EDT Office Visit Orthopedic Surgery [facility] [address] [phone] Bradly Lucas, DPM Dermatophytosis of nail (Primary Dx); Ingrowing nail; Diabetic mononeuropathy simplex (CMS/HCC V24, CMS/HCC V28); Pain in toe of left foot; Pain in toe of right foot; Tinea pedis of both feet from Last 3 Months Medical History Medical History Date Comments Type 1 diabetes mellitus (CM S/HCC V24, CMS/HCC V28) DX:Type 1 diabetes mellitus (HCC) Impaired [...] Upcoming Encounters Date Type Department Care Team ([facility] Contact Info) Description 01/29/2025 1:45 PM EDT Office Visit Orthopedic Surgery - [place] 250 175 [facility] 250 [place] [address] Bradly Lucas, DPWarren 175 [facility] 250 [place] [address] Health Maintenance Due Date Last Done Comments Diabetes: Annual GFR (Glomerular Filtration Rate) 1969 Diabetes: Annual Foot Exam 1979 Diabetes: Annual Retina Eye Exam 1979 Hepatitis B Vaccines (1 of 3 - 19+ 3-dose series) 01/19/1988 Zoster Vaccines (1 of 2) 2019 Cholesterol Screening (Lipid Panel) 01/31/2024 Colorectal Cancer Screening: Colonoscopy 01/31/2024 HIV Screening 01/31/2024 Hepatitis C Screening 01/31/2024 Medicare Annual Wellness Visit 01/31/2024 Social Influencers of Health Screening 01/31/2024 Diabetes: Annual Urine Albumin-Creatinine Ratio (uACR) 03/12/2024 Diabetes: Blood Sugar Control Test (HGBA1C) 03/12/2024 Hypertension/CHF/CAD Annual BMP Blood Test 03/12/2024 Depression Screening 04/25/2024 COVID-19 Vaccine ( season) 2024 12/18/2021, 03/20/2021, 05/30/2020, Additional history exists Influenza Vaccine (#1) 2024 , 02/28/2023, 03/05/2022, Additional history exists DTaP,Tdap,and Td Vaccines (2 - Td or Tdap) 11/09/2032 11/09/2022 Pneumococcal Vaccine: 50+ Years Completed 07/05/2022 HIB Vaccines Aged Out No longer eligi [...] Insurance MEDICA[place] - [place] MEDICARE Care Teams Veneer Gluer Relationship Specialty Start Date End Date Ben Gastelum MD [address] [place] [address] [address] [facility] [place] [address] PCP - General 11/25/23
[2024-12-29 09:02] LABS: Prostate Specific Antigen 3.16 ng/mL (<0.05-4.0)
== END 2024-12-29 07:36 | disposition home or self-care (01) ==
LOC: HO.LAB 07:35
PROVIDERS: PCP Internal Medicine; Visit Provider Nurse Practitioner Family
DX: N40.1 Benign prostatic hyperplasia with lower urinary tract symptoms (principal); E11.65 Type 2 diabetes mellitus with hyperglycemia; R97.20 Elevated prostate specific antigen [PSA]; Z12.5 Encounter for screening for malignant neoplasm of prostate
CPT/HCPCS: 36415; 82570; 84153

== ENCOUNTER 2024-12-31 13:48 | Outpatient (AMB) | payer MEDICARE, MEDICAID, SELFPAY ==
--- NOTE | 2024-12-31 13:57 | MHC.OFFVIS ---
Intake Visit Reasons: 4M/PSA Intake Note: Patient is present for 4M/PSA Urology Medication:TADALAFIL,POTUSSIUM CHLORIDE,FINASTERIDE Antibiotic Allergy:NONE Blood Thinner:NONE Grain Origination Specialist Required: No Allergies No Known Allergies Allergy (Verified 12/31/24 22:25) Medication List - Last Reconciled 12/31/24 by AMY Sawyer- blood sugar diagnostic (FreeStyle Lite Strips) As directed blood-glucose meter (FreeStyle Lite Meter kit) As directed carboxymethylcellulose sodium 0.5% (Refresh Tears) 1 drp ophthalmic (eye) BID cholecalciferol (vitamin D3) 50 mcg PO QAM finasteride 5 mg PO DAILY 90 days hydrochlorothiazide 25 mg PO DAILY insulin degludec (Tresiba FlexTouch U-100 insulin) 5 units (0.05 mL) subcut DAILY insulin syringe-needle U-100 As directed metformin 500 mg PO BIDWMEAL potassium chloride ER (Klor-Con M) 20 mEq PO DAILY pravastatin 40 mg PO DAILY 30 days tadalafil 5 mg PO DAILY 90 days HPI Comments Details: Tomasz is a pleasant 54 year old male patient of Dr. Gastelum who was accompanied by his breastfeeding program coordinator at today's office visit. He has a past medical history of alcohol syndrome, hypertension, hypercholesteremia, and mental and behavioral problem. He presents to the office today for follow-up of his elevated PSA. Of note, patient underwent prostate biopsy with Dr. Neal September 2022 NAD. In discussion with the patient today reports to be doing and feeling well. He reports compliance with 5 mg of finasteride daily as well as Cialis. He reports noting urinary urgency and frequency are well controlled with 5 mg of Cialis daily. He currently denies any bothersome urinary issues or concerns. Recent PSA results reviewed with the patient today as noted and trended below. In office urinalysis results reviewed with the patient today. He otherwise denies urinary urgency, urinary frequency, incontinence, nocturia, hematuria, dysuria, foul smelling urine, changes to urinary stream, flank pain, fever, and or chills. He otherwise offers no other issues or concerns at this time. Elevated PSA 07/15- 8.0, 08/15- 9.9, 08/15- 8.6 percent free 12%, 04/16 4.8 percent free 13%, 09/15 2.9, 12/16 3.0, 04/17 3.0, 05/19 3.0, 09/16 3.0, 01/17 3.2 Prostate biopsy - 10/15 [facility] Medical History Screening for prostate cancer Medicare annual wellness visit, initial Colon cancer screening Overweight (BMI 25.0-29.9) alcohol syndrome Hypertension Hypercholesterolemia Mental and behavioral problem Impaired fasting blood sugar Surgical History History of biopsy Hx of colonoscopy History of oral surgery Family History Father No problems noted. Mother No problems noted. Brother Past heart attack Social History Household Members: Other Housing: Assisted Living Facility Housing Other:: Half-Way Alcohol intake: never Patient Tobacco Use Status: Never used Tobacco Tobacco use type: Cigarette e-Cigarette/Vaping Use: Never Used Second Hand Smoke Exposure: No service: No Current occupational status: disabled Cognitive needs: No Hearing needs: No Vision needs: Yes (glasses) Review of Systems Const All systems reviewed & are unremarkable except as noted in HPI and below Eyes Reports no additional complaints ENT Reports no additional complaints Card Reports no additional complaints Resp Reports no additional complaints GI Reports no additional complaints Reports as per HPI Musc Reports no additional complaints Neuro Reports no additional complaints Psych Reports as per HPI Endo Reports as per HPI Levi/Lymph Reports no additional complaints Aller/Immun Reports no additional complaints Physical Exam Const General: cooperative, healthy appearing, comfortable, no acute distress, well developed, alert and awake Nutritional Appearance: average body habitus Orientation/consciousness: patient oriented x3 Limitations: no limitations HEENT Head: Yes normal to inspection, Yes normocephalic and Yes atraumatic Ears: hearing grossly normal bilaterally Eyes General: appearance normal, both eyes and all related structures Neck Neck: Yes normal visual inspection and Yes trachea midline Chest Chest palpation & inspection: normal inspection of the chest Resp Effort & Inspection: normal respiratory effort and able to speak in complete sentences Cardio Rate: regular rate GI Inspection: Yes normal to inspection General: Yes no CVA tenderness Back/Spine/Pelvis Back: no CVA tenderness Skin General skin exam: no rashes or lesions noted Neuro General: patient oriented x3 Extrem General: Yes normal to inspection Psych Appearance: grossly normal and well kempt Mental Status: mental status grossly normal Speech and movement: Normal speech and movement present and Clear speech present Affect: normal affect Attitude: cooperative Thought process: Normal thought process present Thought content: Normal thought content present Insight: Fair insight present (Psych) Judgement: Fair judgement present (Psych) Results AMB Urinalysis, Automated UA Leukoctes 0 Boogie/uL Last Edit by MALAIKA Yoon on 12/31/24 16:29 UA Nitrite Negative Last Edit by MALAIKA Yoon on 12/31/24 16:29 UA Urobilinogen 0.2 mg/dL Last Edit by MALAIKA Yoon on 12/31/24 16:29 UA Protein 15 mg/dL Last Edit by MALAIKA Yoon on 12/31/24 16:29 UA pH 7.0 Last Edit by MALAIKA Yoon on 12/31/24 16:29 UA Blood 0 Bharat/uL Last Edit by MALAIKA Yoon on 12/31/24 16:29 UA Specific [place] 1.015 Last Edit by MALAIKA Yoon on 12/31/24 16:29 UA Ketone Negative Last Edit by MALAIKA Yoon on 12/31/24 16:29 UA Bilirubin 0 mg/dL Last Edit by MALAIKA Yoon on 12/31/24 16:29 UA Glucose 0 mg/dL Last Edit by MALAIKA Yoon on 12/31/24 16:29 Results Reviewed Results Reviewed: Laboratory Last Values Urine pH (Auto) 7.0 12/31/24 16:28 Specific [place] (Auto) 1.015 12/31/24 16:28 Urine Protein (Auto) 15 mg/dL 12/31/24 16:28 Glucose (UA)(Auto) 0 mg/dL 12/31/24 16:28 Urine Ketones (Auto) Negative 12/31/24 16:28 Urine Blood (Auto) 0 Bharat/uL 12/31/24 16:28 Urine Nitrite (Auto) Negative 12/31/24 16:28 Urine Bilirubin (Auto) 0 mg/dL 12/31/24 16:28 Urine Urobilinogen (Auto) 0.2 mg/dL 12/31/24 16:28 Leukocyte Esterase (Auto) 0 Boogie/uL 12/31/24 16:28 Assessment & Plan Assessment & Plan (1) PSA elevation: Code(s): R97.20 - Elevated prostate specific antigen [PSA] Category: Medical (2) Urinary urgency: Code(s): R39.15 - Urgency of urination Category: Medical (3) BPH loc w urin obs/LUTS: Code(s): N40.1 - Benign prostatic hyperplasia with lower urinary tract symptoms Category: Medical Plan In office urinalysis results reviewed with the patient today; as noted above. Recent PSA results reviewed with the patient today; as noted above. Continue 5 mg of Cialis and finasteride as prescribed. Patient reports be happy with current voiding parameters. Patient currently denies any bothersome urinary issues or concerns. Will obtain PSA in 4 months. Follow-up in 4 months with lab to be completed prior; or sooner with any issues, concerns, and or questions. Orders: Orders AMB Urinalysis Automated Today Z13.9 - Encounter for screening, unspecified Prostate Specific Antigen 4 Months N40.1 - Benign prostatic hyperplasia with lower urinary tract symptoms, R39.15 - Urgency of urination, R97.20 - Elevated prostate specific antigen [PSA] Medications: Refilled finasteride 5 mg PO DAILY 90 tabs 3RF 90 days N13.8 - Other obstructive and reflux uropathy, N40.1 - Benign prostatic hyperplasia with lower urinary tract symptoms, R33.9 - Retention of urine, unspecified tadalafil 5 mg PO DAILY 90 tabs 1RF urinary urge 90 days R39.15 - Urgency of urination Patient Instructions: The patient had an opportunity to ask questions regarding the treatment plan. All questions were answered. Physical exam, labs, and imaging were discussed and reviewed in detail. As well as risks, benefits, and discussion of treatment choices. No major barriers to understanding were identified. The patient expressed understanding and agreement with the above treatment plan. The patient was made aware they should contact our office by phone for worsening of their current condition, the appearance of new symptoms, or with any questions or concerns. Compliance is encouraged with any medications and follow up testing that is ordered. It is a privilege to be allowed the opportunity to participate in? your urological care.? Again, if you have any questions or concerns If you have any questions or concerns please do not hesitate to contact me. The office is [phone]. This note is constructed using voice recognition software. While every effort has been made to ensure accuracy play therapist errors may have been included. Yours sincerely, AMY Sawyer-BOB Coding Level of Care Code Est Pt Level 3 (69459) Complex EM visit Add On G2211 Diagnoses PSA elevation R97.20 Urinary urgency R39.15 BPH loc w urin obs/LUTS N40.1
--- OUTSIDE RECORDS SUMMARY | 2024-12-31 16:05 | XMS_ITS | Clinical Summary ---
Author Organization 175 [facility] Address [address] [place] [address] Phone Care Team Providers Care Crane Operator Cab Name Role Phone Ben Gastelum MD Primary Care Provider [phone] Allergies No known active allergies Medications clotrimazole [...] Care Team Description 11/08/2024 Telephone Orthopedic Surgery [facility] [address] [phone] Bradly Lucas DPM 10/29/2024 2:45 PM EDT Office Visit Orthopedic Surgery [facility] [address] [phone] Bradly Lucas, DPM Dermatophytosis of nail (Primary [...] Upcoming Encounters Date Type Department Care Team ([facility] Contact Info) Description 01/29/2025 1:45 PM EDT Office Visit Orthopedic Surgery - [place] 250 175 [facility] 250 [place] [address] Bradly Lucas, DPWarren 175 [facility] 250 [place] [address] Health Maintenance Due Date Last [...] Insurance [place] - [place] Care Teams Crane Operator Cab Relationship Specialty Start Date End Date Ben Gastelum MD [address] [place] [address] [address] [facility] [place] [address] PCP - General 11/25/23
--- OUTSIDE RECORDS SUMMARY | 2024-12-31 16:05 | XMS_ITS | Encounter Summary ---
Author Organization [facility] Address [address] [place] [address] Care Team Providers Care Manager Cardiac Cath Name Role Phone Ben Gastelum MD Primary Care Provider [phone] Encounter Details Date Type Department Care Team (Late Contact Info) Description 11/08/2024 Telephone Orthopedic Surgery - [place] [address] [address] Bradly Lucas, DPM [address] [phone] Social History Tobacco Use Types Packs/Day Years Used Date Smoking Tobacco: Never Assessed Sex and Gender Information Value Date Recorded Sex Assigned at Not on file Legal Sex Male 11:41 AM EDT Gender Identity Not on file Sexual Orientation Not on file documented as of this encounter Progress Notes * Michelle Kimbrough - 12/31/2024 12:01 PM EDT Per enc 11/08/24 Please contact Carmen and clarify prescription stating target areas and frequency * Michelle Kimbrough - 11/08/2024 10:33 AM EDT Carmen called regarding AmLactin and Ketoconazole scripts. Please clarify Target area and frequency Can leave a VM [phone] documented in this encounter Plan of Treatment Upcoming Encounters Date Type Department Care Team (Late st Contact Info) Description 01/29/2025 1:45 PM EDT Office Visit Orthopedic Surgery - [place] 250 175 [facility] 250 [place] [address] Bradly Lucas, DPM 175 [facility] 250 [place] [address] documented as of this encounter Visit Diagnoses Not on filedocumented in this encounter Care Teams Manager Cardiac Cath Relationship Specialty Start Date End Date Ben Gastelum MD [address] [place] [address] [address] [facility] [place] [address] PCP - General 11/25/23 documented as of this encounter
== END 2024-12-31 14:39 | disposition home or self-care (01) ==
LOC: HO.HUSH 13:49
PROVIDERS: PCP Internal Medicine; Visit Provider Nurse Practitioner Family
DX: N40.1 Benign prostatic hyperplasia with lower urinary tract symptoms (principal); R97.20 Elevated prostate specific antigen [PSA]; R39.15 Urgency of urination; Z13.9 Encounter for screening, unspecified
CPT/HCPCS: 99213; G2211

== ENCOUNTER → 2024-12-31 13:48 | Outpatient (BNVA) | payer MEDICARE, MEDICAID, SELFPAY | PROVIDERS: PCP Internal Medicine; Visit Provider Nurse Practitioner Family | DX: N40.1 Benign prostatic hyperplasia with lower urinary tract symptoms (principal); R39.15 Urgency of urination; R97.20 Elevated prostate specific antigen [PSA] | CPT/HCPCS: 81003; 99212 ==